=== PATIENT | male | born 1975 | race Caucasian/White ===

== ENCOUNTER 2024-09-21 09:24 | Outpatient (CLI) | payer OTHER, SELFPAY ==
--- OUTSIDE RECORDS SUMMARY | 2024-09-21 09:29 | XMS_ITS | Clinical Summary ---
Author Organization [facility] Address [address] [place] [address] Care Team Providers Care Feller Machine Operator Name Role Phone Ciara Layton Primary Care Provider Source Comments [facility],non-owned Affiliates and Associated Physician Practices is amultiple site organization consisting of ambulatory clinics and hospital sitesin [place], [place], [place] and [place]. This disclosure is being madepursuant to the Care Everywhere program and may not contain all information available regarding this patient. Last updated 18.[facility] Allergies No known active allergies Medications * Be aware that medications may not be up to date on this document. Alwaysverify current medications with the patient. busPIRone (Buspar) 15 MG tablet Take 1 (one) tablet by mouth 2 times daily 2 Active gabapentin (Neurontin) 300 MG capsule 1 (one) capsule at bedtime 2 Active lisinopril (Prinivil; Zestril) 10 MG tablet Take 1 (one) tablet by mouth once daily 2 Active allopurinol (Zyloprim) 100 MG tablet Take 1 (one) tablet by mouth once daily 2 Active hydroCHLOROthia zide (Hydrodiuril) 25 MG tablet Take 0.5 (one-half) tablet by mouth once daily Active baclofen (Lioresal) 10 MG tablet Take 2 (two) tablets by mouth 2 times daily 4 Active buPROPion SR 12hr (Wellbutrin-SR) 150 MG tablet Take 1 (one) tablet by mouth once daily 3 Active celecoxib (CeleBREX) 200 MG capsule Take 1 (one) capsule by mouth once daily 4 Active furosemide (Lasix) 20 MG tablet Take 1 (one) tablet by mouth once daily Active meclizine (Antivert) 25 MG tablet Take 1 (one) tablet by mouth 3 times daily as needed for Dizziness 4 Active acetaminophen (Tylenol) 500 MG tablet Take 2 (two) tablets by mouth every 6 hours as needed for Pain Active vitamin D, ergocalciferol, (Drisdol) 1.25 MG (52497 UT) capsuleIndicati ons:Vitamin D Deficiency Take 1 (one) capsule by mouth every 7 days Reasons: Vitamin D Deficiency 4 capsule 3 4 Active topiramate (Topamax) 25 MG tabletIndicatio ns:Morbid obesity with BMI of 50.0-59.9, adult (HCC) Take 1 (one) tablet by mouth at bedtime 30 tablet 4 Active Active Problems No known active problems Family History Medical History Relation Name Comments CVA Father Heart Failure Maternal Grandfather Cancer Maternal Grandmother Heart Failure Paternal Grandfather Cancer Paternal Grandmother Relation Name Status Comments Father Maternal Grandfather Maternal Grandmother Paternal Grandfather Paternal Grandmother Social History Tobacco Use Types Packs/Day Years Used Date Smoking Tobacco: Never Smokeless Tobacco: Never Alcohol Use Standard Drinks/Week Comments Not Currently 0 (1 standard drink = 0.6 oz pur e alcohol) Very rarely PHQ-2 Answer Date Recorded Patient Health Questionnaire-2 Score 1 01/05/2024 Sex and Gender Information Value Date Recorded Sex Assigned at Not on file Legal Sex Male 4:37 AM CDT Gender Identity Not on file Sexual Orientation Not on file Last Filed Vital Signs Vital Sign Reading Time Taken Comments Blood Pressure 101/69 01/05/2024 10:58 AM CDT Pulse 87 01/05/2024 10:58 AM CDT Temperature 36.8 C (98.2 F) 01/05/2024 10:58 AM CDT Respiratory Rate 20 01/05/2024 10:58 AM CDT Oxygen Saturation 95% 01/05/2024 10:58 AM CDT Inhaled Oxygen Concentration - - Weight 174 kg (383 lb 11.2 oz) 01/05/2024 10:58 AM CDT Height 180.3 cm (5' 11) 01/05/2024 10:58 AM CDT Body Mass Index 53.52 01/05/2024 10:58 AM CDT Plan of Treatment Health Maintenance Due Date Last Done Comments COLOGUARD (AGES 45-75) - COL ON CA SCREENING [address] COLONOGRAPHY - COLON CA SCREENING 1973 FIT - COLON CA SCREENING 1973 FLEX SIG - COLON CA SCREENING 1973 HIV SCREENING 1988 HEPATITIS C SCREENING 03/22/1991 DTAP/TDAP/TD VACCINES (1 - Tdap) 1992 HEPATITIS B VACCINE (1 of 3 - 19+ 3-dose series) 1992 PNEUMOCOCCAL VACCINE 50+ (1 of 1 - PCV) 2023 ZOSTER VACCINE (1 of 2) 2023 COVID-19 VACCINE ( - 2023-2 5 season) 2023 DEPRESSION SCREENING 04/25/2024 01/05/2024 INFLUENZA VACCINE (Season Ended) 2024 SCREENING FOR DIABETES 01/09/2027 , 01/10/2024, 01/10/2024 LIPID TESTING 01/09/2029 01/10/2024, 08/03/2023, 03/09/2022 COLONOSCOPY - COLON CA SCREENING 11/22/2032 11/22/2022 Colorectal Cancer Screening 11/22/2032 HIB VACCINE Aged Out No longer eligi ble based on patient's age to complete this topic HPV VACCINE Aged Out No longer eligi ble based on patient's age to complete this topic MENINGOCOCCAL (Group B) VACCINE SHARED DECISION-MAKING Aged Out No longer eligible based on patient's age to complete this topic MENINGOCOCCAL GROUPS A/C/Y/W VACCINE Aged Out No longer eligible b ased on patient's age to complete this topic Procedures Procedure Name Priority Date/Time Associated Diagnosis Comments COMPREHENSIVE METABOLIC PANEL Routine 01/10/2024 Morbid obesity with BMI of 50.0-59.9, adult LIPID PROFILE Routine 01/10/2024 Morbid obesity with BMI of 50.0-59.9, adult from Last 3 Months or Most Recently Relevant to Health Maintenance Results * COMPREHENSIVE METABOLIC PANEL (01/10/2024) Blood BLOOD SPECIMEN / Unknown 01/10/2024 Sharri Parsons CERTIFIED CONTROL SYSTEMS TECHNICIAN-MANAGER PRACTICE LAB - CHEMISTRY ORDERABLES F inal Result OTHER LAB * LIPID PROFILE (01/10/2024) Blood BLOOD SPECIMEN / Unknown 01/10/2024 Sharri Parsons CERTIFIED CONTROL SYSTEMS TECHNICIAN-MANAGER PRACTICE LAB - CHEMISTRY ORDERABLES F inal Result OTHER LAB from Last 3 Months or Most Recently Relevant to Health Maintenance Insurance [facility] Care Teams Feller Machine Operator Relationship Specialty Start Date End Date Ciara Layton PA [address] [facility] [address] [place] [address] PCP - General Physician Bending Shed Worker 10/11/23
== END 2024-09-21 09:25 | disposition home or self-care (01) ==
LOC: ANHAUDIO 09:24
PROVIDERS: Visit Provider Otolaryngology Otolaryngology/Facial Plastic Surgery
DX: H90.3 Sensorineural hearing loss, bilateral (principal); H93.13 Tinnitus, bilateral
CPT/HCPCS: 92557; 92567

== ENCOUNTER 2024-10-04 12:39 | Outpatient (CLI) | payer OTHER, SELFPAY ==
--- NOTE | ~2024-10-04 | CT_ITS ---
EXAMINATION: CT sinus wo con DATE: 10/04/2024 13:19 INDICATION: Chronic sinusitis TECHNIQUE: Computed tomography (CT) of the paranasal sinuses was performed without intravenous contra st. The dose-length product was 327.26 mGy-cm. Automated exposure control and iterative reconstructio n technique were employed. COMPARISON: None FINDINGS: There is mucosal thickening of the left maxillary, ethmoid and frontal sinuses. Mastoids ar e pneumatized. Left ostiomeatal unit is occluded by soft tissue. Ostiomeatal unit is patent. Leftward nasal septal deviation. IMPRESSION: 1. Moderate sinus disease most significant in the left maxillary sinus. Reviewed, dictated and finalized at location B.
--- OUTSIDE RECORDS SUMMARY | 2024-10-04 13:07 | XMS_ITS | Clinical Summary ---
Author Organization [facility] Address [address] [facility] [place] [address] Care Team Providers Care Analytic Programmer Name Role Phone Ciara Layton Primary Care Provider Source Comments [facility],non-owned Affiliates and Associated Physician Practices is amultiple site organization consisting of ambulatory clinics and hospital sitesin [place], [place], [place] and [place]. This disclosure is being madepursuant to the Care Everywhere program and may not contain all information available regarding this patient. Last updated 18.[facility] Allergies No known active allergies Medications * [...] Active vitamin D, ergocalciferol, (Drisdol) 1.25 MG (92692 UT) capsuleIndicati ons:Vitamin D Deficiency Take 1 [...] Last Done Comments COLOGUARD (AGES 45-75) - COLON CA SCREENING 1973 CT COLONOGRAPHY - COLON CA SCREENING [...] of 2) 2023 COVID-19 VACCINE ( - season) 2023 DEPRESSION SCREENING 04/25/2024 01/05/2024 INFLUENZA VACCINE (Season Ended) 2024 SCREENING FOR DIABETES 01/09/2027 , 01/10/2024, 01/10/2024, Additional history exists LIPID TESTING 01/09/2029 01/10/2024, 04, 03/09/2022 COLON MONITORING 11/22/2032 11/22/2022 COLONOSCOPY - COLON CA SCREENING 11/22/2032 11/22/2022 [...] A/C/Y/W VACCINE Aged Out No longer eligible based on [...] BLOOD SPECIMEN / Unknown 01/10/2024 Sharri Parsons SEWING MACHINE OPERATOR SEMIAUTOMATIC-PRESS SUPERVISOR LAB - CHEMISTRY ORDERABLES F inal Result OTHER LAB * LIPID PROFILE (01/10/2024) Blood BLOOD SPECIMEN / Unknown 01/10/2024 Sharri Parsons SEWING MACHINE OPERATOR SEMIAUTOMATIC-PRESS SUPERVISOR LAB - CHEMISTRY ORDERABLES F inal Result OTHER LAB from Last 3 Months or Most Recently Relevant to Health Maintenance Insurance [facility] Care Teams Analytic Programmer Relationship Specialty Start Date End Date Ciara Layton PA [address] [address] PCP - General Physician Personal Property Appraiser 10/11/23
== END 2024-10-04 12:40 | disposition home or self-care (01) ==
PROVIDERS: Visit Provider Otolaryngology Otolaryngology/Facial Plastic Surgery
DX: J32.0 Chronic maxillary sinusitis (principal)
CPT/HCPCS: 70486

== ENCOUNTER 2024-11-08 16:20 | Outpatient (CLI) | payer OTHER, SELFPAY ==
--- NOTE | ~2024-11-08 | MR_ITS ---
MRI of the brain Clinical History: Bilateral sensorineural hearing loss Technique: Axial and sagittal T1-weighted images were acquired. These were followed by axial T2-weigh modesto, diffusion weighted, gradient, and FLAIR images. Thin cut coronal and axial T1-weighted and T2-we ighted images were performed through the internal auditory canals. Following intravenous administrati on of 20 cc MultiHance gadolinium, T1-weighted fat-sat imaging was performed through the brain in the axial and coronal planes. Thin cut T1-weighted postcontrast imaging through the internal auditory ca nals was also performed in the axial and coronal planes. Findings: No significant signal abnormality seen in the brain parenchyma. No acute infarct, intracran ial hemorrhage, or mass lesion. Ventricles and subarachnoid spaces are unremarkable. Orbits are unremarkable. There is extensive opac ification of the left maxillary sinus. Remaining paranasal sinuses and mastoid air cells are clear. M ajor intracranial flow voids appear intact. Sagittal midline structures are intact. No evidence of mass lesion at the CP angle regions or internal auditory canals. No abnormal postcontrast enhancement identified. IMPRESSION: No significant abnormality seen. Reviewed, dictated and finalized at location M.
--- OUTSIDE RECORDS SUMMARY | 2024-11-08 16:26 | XMS_ITS | Encounter Summary ---
Author Organization [facility] Address [facility] [place] [address] Care Team Providers Care Enterprise Cloud Architect Name Role Phone Fredy Gill MD Primary Care Provider Unavailable Ciara Layton Primary Care Provider [phone] Jb Kim MD Unavailable [phone] Phoenix Dye MD Unavailable [phone] Jarad Garcia MD Unavailable [phone] Emelyn Warren MD Unavailable [phone] Encounter Details Date Type Department Care Team (Late st Contact Info) Description 07/15/2006 Abstract [facility] Conversion , Generic Conversion, Social History Tobacco Use Types Packs/Day Years Used Date Smoking Tobacco: Never Assessed Sex and Gender Information Value Date Recorded Sex Assigned at Male 12/10/2020 9:56 AM CDT Legal Sex Male 5:50 PM CDT Gender Identity Male 12/10/2020 9:56 AM CDT Sexual Orientation Straight 12/10/2020 9: 56 AM CDT documented as of this encounter Plan of Treatment Upcoming Encounters Date Type Department Care Team (Late st Contact Info) Description 12/10/2024 12:00 PM CDT Appointment [facility] [address] [place] [address] Nicola Parsons MD Three [facility]. [address] [place] [address] 02/22/2025 10:00 AM CDT Office Visit [facility] THREE [facility], [address] [place] [address] Judith Haile, MAINSPRING TORQUE TESTER-C Three [facility]. [address] [place] [address] 04/04/2025 9:40 AM CHILD AND FAMILY THERAPIST Office Visit [facility] Medical Group Multispecialty Care - [facility] [address] [facility] [place] [address] Phoenix Dye MD [address] [place] [address] [address] [place] [address] documented as of this encounter Visit Diagnoses Not on filedocumented in this encounter Additional Health Concerns Infection Onset Date Last Indicated Resolved Time COVID-19 Rule Out 10/13/2020 10/13/2020 10/13/2020 10:37 AM CDT COVID-19 Rule Out 10/13/2020 10/13/2020 10/13/2020 8:32 PM CDT COVID-19 Rule Out 04/24/2021 04/24/2021 04/24/2021 4:18 PM CHILD AND FAMILY THERAPIST COVID-19 Confirmed 04/24/2021 04/24/2021 12:32 AM CHILD AND FAMILY THERAPIST COVID-19 Rule Out 05/29/2021 05/29/2021 05/29/2021 8:50 AM CHILD AND FAMILY THERAPIST COVID-19 Rule Out 01/17/2023 12/28/2022 01/17/2023 12:11 PM CDT COVID-19 Rule Out 03/27/2023 03/27/2023 03/27/2023 6:02 PM CHILD AND FAMILY THERAPIST Respiratory Rule Out 06/23/2024 06/23/2024 025 9:53 PM CHILD AND FAMILY THERAPIST COVID-19 Rule Out 06/23/2024 06/23/2024 06/23/2024 10:15 PM CHILD AND FAMILY THERAPIST documented as of this encounter Care Teams Enterprise Cloud Architect Relationship Specialty Start Date End Date GillFredy MD PCP - General 10/05/16 04/14/18 Ciara Layton, PA [address] [place] [address] PCP - General PHYSICIAN TRAILHEAD MAINTENANCE WORKER 04/15/18 Jb Kim MD Three [facility]. [address] [address] Consulting Physician CARDIOVASCULAR DISEASE 10/21/22 Phoenix Dye MD [address] [place] [address] Consulting Physician PULMONARY DISEASE 10/21/22 Jarad Garcia MD [address] [place] [address] Physician NEUROMUSCULOSKELETAL MEDICINE 10/21/22 08/25/23 Emelyn Warren MD [address] [place] [address] Consulting Physician NEUROLOGY 08/26/23 documented as of this encounter
--- OUTSIDE RECORDS SUMMARY | 2024-11-08 16:26 | XMS_ITS | Encounter Summary ---
Author Organization [facility] Address [facility] [place] [address] Care Team Providers Care Fisheries Enforcement Officer Name Role Phone Fredy Gill MD Primary Care Provider Unavailable Ciara Layton Primary Care Provider [phone] Jb Kim MD Unavailable [phone] Phoenix Dye MD Unavailable [phone] Jarad Garcia MD Unavailable [phone] Emelyn Warren MD Unavailable [phone] Encounter Details Date Type Department Care Team (Late st Contact Info) Description 12/05/2006 Abstract [facility] Conversion , Generic Conversion, Social History [...] Info) Description 12/10/2024 12:00 PM CDT Appointment [facility] [address] [place] [address] Nicola Parsons MD Three [facility]. [address] [place] [address] 02/22/2025 10:00 AM CDT Office Visit [facility] THREE [facility], [address] [place] [address] Judith Haile, MERRY GO ROUND ATTENDANT-C Three [facility]. [address] [place] [address] 04/04/2025 9:40 AM FERRYBOAT DECKHAND Office Visit [facility] Medical Group Multispecialty Care - [facility] [address] [facility] [place] [address] Phoenix Dye MD [address] [place] [address] [address] [place] [address] documented as of this encounter Visit Diagnoses Not on filedocumented in this encounter Additional Health Concerns Infection Onset Date Last Indicated Resolved Time COVID-19 Rule Out 10/13/2020 10/13/2020 10/13/2020 10:37 AM CDT COVID-19 Rule Out 10/13/2020 10/13/2020 10/13/2020 8:32 PM CDT COVID-19 Rule Out 04/24/2021 04/24/2021 04/24/2021 4:18 PM FERRYBOAT DECKHAND COVID-19 Confirmed 04/24/2021 04/24/2021 12:32 AM FERRYBOAT DECKHAND COVID-19 Rule Out 05/29/2021 05/29/2021 05/29/2021 8:50 AM FERRYBOAT DECKHAND COVID-19 Rule Out 01/17/2023 12/28/2022 01/17/2023 12:11 PM CDT COVID-19 Rule Out 03/27/2023 03/27/2023 03/27/2023 6:02 PM FERRYBOAT DECKHAND Respiratory Rule Out 06/23/2024 06/23/2024 025 9:53 PM FERRYBOAT DECKHAND COVID-19 Rule Out 06/23/2024 06/23/2024 06/23/2024 10:15 PM FERRYBOAT DECKHAND documented as of this encounter Care Teams Fisheries Enforcement Officer Relationship Specialty Start Date End Date GillFredy MD PCP - General 10/05/16 04/14/18 Ciara Layton, PA [address] [place] [address] PCP - General PHYSICIAN CARPENTER HELPER MAINTENANCE 04/15/18 Jb Kim MD Three [facility]. [address] [address] Consulting Physician CARDIOVASCULAR DISEASE 10/21/22 Phoenix Dye MD [address] [place] [address] Consulting Physician PULMONARY DISEASE 10/21/22 Jarad Garcia MD [address] [place] [address] Physician NEUROMUSCULOSKELETAL MEDICINE 10/21/22 08/25/23 Emelyn Warren MD [address] [place] [address] Consulting Physician NEUROLOGY 08/26/23 documented as of this encounter
--- OUTSIDE RECORDS SUMMARY | 2024-11-08 16:26 | XMS_ITS | Encounter Summary ---
Author Organization [facility] Address [facility] [place] [address] Care Team Providers Care Absorption And Adsorption Engineer Name Role Phone Fredy Gill MD Primary Care Provider Unavailable Ciara Layton Primary Care Provider [phone] Jb Kim MD Unavailable [phone] Phoenix Dye MD Unavailable [phone] Jarad Garcia MD Unavailable [phone] Emelyn Warren MD Unavailable [phone] Encounter Details Date Type Department Care Team (Late st Contact Info) Description 08/18/2006 Abstract [facility] Conversion , Generic Conversion, Social History [...] Info) Description 12/10/2024 12:00 PM CDT Appointment [facility] [address] [place] [address] Nicola Parsons MD Three [facility]. [address] [place] [address] 02/22/2025 10:00 AM CDT Office Visit [facility] [facility] THREE [facility], [address] [place] [address] Judith Haile, CROSSCUTTER-C Three [facility]. [address] [place] [address] 04/04/2025 9:40 AM SENIOR TERADATA DEVELOPER Office Visit [facility] Medical Group Multispecialty Care - [facility] [address] [facility] [place] [address] Phoenix Dye MD [address] [place] [address] [address] [place] [address] documented as of this encounter Visit Diagnoses Not on filedocumented in this encounter Additional Health Concerns Infection Onset Date Last Indicated Resolved Time COVID-19 Rule Out 10/13/2020 10/13/2020 10/13/2020 10:37 AM CDT COVID-19 Rule Out 10/13/2020 10/13/2020 10/13/2020 8:32 PM CDT COVID-19 Rule Out 04/24/2021 04/24/2021 04/24/2021 4:18 PM SENIOR TERADATA DEVELOPER COVID-19 Confirmed 04/24/2021 04/24/2021 12:32 AM SENIOR TERADATA DEVELOPER COVID-19 Rule Out 05/29/2021 05/29/2021 05/29/2021 8:50 AM SENIOR TERADATA DEVELOPER COVID-19 Rule Out 01/17/2023 12/28/2022 01/17/2023 12:11 PM CDT COVID-19 Rule Out 03/27/2023 03/27/2023 03/27/2023 6:02 PM SENIOR TERADATA DEVELOPER Respiratory Rule Out 06/23/2024 06/23/2024 025 9:53 PM SENIOR TERADATA DEVELOPER COVID-19 Rule Out 06/23/2024 06/23/2024 06/23/2024 10:15 PM SENIOR TERADATA DEVELOPER documented as of this encounter Care Teams Absorption And Adsorption Engineer Relationship Specialty Start Date End Date GillFredy MD PCP - General 10/05/16 04/14/18 Ciara Layton, PA [address] [place] [address] PCP - General PHYSICIAN RETAIL OFFICE MANAGER 04/15/18 Jb Kim MD Three [facility]. [address] [address] Consulting Physician CARDIOVASCULAR DISEASE 10/21/22 Phoenix Dye MD [address] [place] [address] Consulting Physician PULMONARY DISEASE 10/21/22 Jarad Garcia MD [address] [place] [address] Physician NEUROMUSCULOSKELETAL MEDICINE 10/21/22 08/25/23 Emelyn Warren MD [address] [place] [address] Consulting Physician NEUROLOGY 08/26/23 documented as of this encounter
--- OUTSIDE RECORDS SUMMARY | 2024-11-08 16:26 | XMS_ITS | Encounter Summary ---
Author Organization [facility] Address [facility] [place] [address] Care Team Providers Care Employee Development Specialist Name Role Phone Ciara Layton Primary Care Provider [phone] Jb Kim MD Unavailable [phone] Phoenix Dye MD Unavailable [phone] Jarad Garcia MD Unavailable [phone] Emelyn Warren MD Unavailable [phone] Encounter Details Date Type Department Care Team (Late st Contact Info) Description 03/24/2023 MyChart Message Enc [facility] [address] [place] [address] Roberta Monge, PT [address] [place], [place] [id number] PT Social History Tobacco Use Types Packs/Day Years Used Date Smoking Tobacco: Never Passive Smoke Exposure: Never Smokeless Tobacco: Never Comments:Never Smoked Alcohol Use Standard Drinks/Week Comments Yes 0 (1 standard drink = 0.6 oz pur e alcohol) rarely, less than twice a year PHQ-2 Answer Date Recorded Patient Health Questionnaire-2 Score 0 03/23/2023 Sex and Gender Information Value Date Recorded Sex Assigned at Male 12/10/2020 9:56 AM CDT Legal Sex Male 5:50 PM CDT Gender Identity Male 12/10/2020 9:56 AM CDT Sexual Orientation Straight 12/10/2020 9: 56 AM CDT documented as of this encounter Functional Status * RETIRED Are you deaf or do you have serious difficulty hearing Answer Date of Assessment Author Status No 03/07/2022 7:00 AM FLIGHT ATTENDANT INFLIGHT SERVICES Activ e * RETIRED Are you blind or do you have serious difficulty seeing, even when wearing glasses? Answer Date of Assessment Author Status No 03/07/2022 8:00 AM FLIGHT ATTENDANT INFLIGHT SERVICES Activ e * Do you have serious difficulty walking or climbing stairs? Answer Date of Assessment Author Status Yes 03/07/2022 8:00 AM Amanda Esposito RN Active * Do you have difficulty dressing or bathing? Answer Date of Assessment Author Status No 03/07/2022 8:00 AM Amanda Esposito RN Active * Because of a physical, mental, or emotional condition, do you have difficulty doing errands alone such as visiting a doctor's office or shopping? Answer Date of Assessment Author Status No 03/07/2022 8:00 AM Amanda Esposito RN Active * Calculated C-SSRS Risk Score (Lifetime/Recent) Answer Date of Assessment Author Status No Risk Indicated 03/27/2023 5:04 PM Mei Nielsen RN Active * [place] Suicide Severity Rating Scale (Screener/Recent Self-Report) Question Answer Date of Assessment Author Status 1. Wish to be (Past 1 Month) No 03/27/2023 5:04 PM Mei Nielsen RN Active 2. Non-Specific Active Suicidal Thoughts (Past 1 Month) No 03/27/2023 5:04 PM Mei Nielsen RN Active 6. Suicidal Behavior (Lifetime) No 03/27/2023 5:04 PM Mei Nielsen RN Active documented as of this encounter Mental Status * Because of a physical, mental, or emotional condition, do you have serious difficulty concentrating, remembering, or making decisions? Answer Entry Date Author Status No 03/07/2022 8:00 AM Amanda Esposito RN Active documented in this encounter Plan of Treatment Upcoming Encounters Date Type Department Care Team (Late st Contact Info) Description 12/10/2024 12:00 PM CDT Appointment [facility] [address] [place] [address] Nicola Parsons MD Three [facility]. [address] [place] [address] 02/22/2025 10:00 AM CDT Office [facility] [address] [place] [address] Judith Haile, SILK SCREEN PRINTING RACKER-C Three [facility]. [address] [place] [address] 04/04/2025 9:40 AM FLIGHT ATTENDANT INFLIGHT SERVICES Office Visit [facility] Medical [facility] Multispecialty Care - [facility] [address] [facility] [place] [address] Phoenix Dye MD [address] [facility] [address] [place] [address] documented as of this encounter Visit Diagnoses Not on filedocumented in this encounter Additional Health Concerns Infection Onset Date Last Indicated Resolved Time COVID-19 Rule Out 03/27/2023 03/27/2023 03/27/2023 6:02 PM FLIGHT ATTENDANT INFLIGHT SERVICES Respiratory Rule Out 06/23/2024 06/23/2024 025 9:53 PM FLIGHT ATTENDANT INFLIGHT SERVICES COVID-19 Rule Out 06/23/2024 06/23/2024 06/23/2024 10:15 PM FLIGHT ATTENDANT INFLIGHT SERVICES Assessment Noted Time PHQ-9 Depression Total Score: 6 09/30/19 23 10:18 AM CDT documented as of this encounter Care Teams Employee Development Specialist Relationship Specialty Start Date End Date Ciara Layton PA [address] [place] [address] PCP - General PHYSICIAN PERFORMANCE REPORTER 04/15/18 Jb Kim MD Three [address] [address] Consulting Physician CARDIOVASCULAR DISEASE 10/21/22 Phoenix Dye MD [address] [place] [address] Consulting Physician PULMONARY DISEASE 10/21/22 Jarad Garcia MD [address] [place], [place] [address] Physician NEUROMUSCULOSKELETAL MEDICINE 10/21/22 08/25/23 Emelyn Warren MD [address] [place] [address] Consulting Physician NEUROLOGY 08/26/23 documented as of this encounter
--- OUTSIDE RECORDS SUMMARY | 2024-11-08 16:27 | XMS_ITS | Encounter Summary ---
Author Organization [facility] Address [facility] [place] [address] Care Team Providers Care Paint Stripper Name Role Phone Ciara Layton Primary Care Provider [phone] Jb Kim MD Unavailable [phone] Phoenix Dye MD Unavailable [phone] Jarad Garcia MD Unavailable [phone] Emelyn Warren MD Unavailable [phone] Encounter Details Date Type Department Care Team (Late st Contact Info) Description 04/26/2023 MyChart Message Enc [facility] Medical Group Multispecialty Care - [facility] [address] [place] [address] Judith Garber, ELENA [address] [place] [address] MRA scan Social History Tobacco Use Types Packs/Day Years Used Date Smoking Tobacco: Never Passive Smoke Exposure: Never Smokeless Tobacco: Never Comments:Never Smoked Alcohol Use Standard Drinks/Week Comments Yes 0 (1 standard drink = 0.6 oz pur e alcohol) rarely, less than twice a year PHQ-2 Answer Date Recorded Patient Health Questionnaire-2 Score 0 04/27/2023 Sex and Gender Information Value Date Recorded [...] Assessment Author Status No 03/07/2022 7:00 AM ELECTRICAL FITTER Activ e * RETIRED Are you blind or do you have serious difficulty seeing, even when wearing glasses? Answer Date of Assessment Author Status No 03/07/2022 8:00 AM ELECTRICAL FITTER Activ e * Do you have serious [...] 8:00 AM Amanda Esposito RN Active * Over the past 2 weeks, how often have you been bothered by any of the following problems? Question Answer Date of Assessment Author Status Little interest or pleasure in doing things Not at all 04/27/2023 10:42 AM Ozzie Santos CMA Active Feeling down, depressed, or hopeless Not at all 04/27/2023 10:42 AM Desiree Santos CMA Active Patient Health Questionnaire-2 Score 0 04/27/2023 10:42 AM Burt Santos CMA Active * Calculated C-SSRS Risk Score (Lifetime/Recent) Answer Date of Assessment Author Status No Risk Indicated 04/29/2023 9:30 AM Scott Katz RN Active * Atkinson Suicide Severity Rating Scale (Screener/Recent Self-Report) Question Answer Date of Assessment Author Status 1. Wish to be (Past 1 Month) No 04/29/2023 9:30 AM Tania Katz RN Act carlita 2. Non-Specific Active Suicidal Thoughts (Past 1 Month) No 04/29/2023 9:30 AM ELECTRICAL FITTER Tania Lr RN Act carlita 6. Suicidal Behavior (Lifetime) No 04/29/2023 9:30 AM ELECTRICAL FITTER Tania Lr RN Act carlita documented as of this encounter Mental Status * Because of a physical, mental, or emotional condition, do you have serious difficulty concentrating, remembering, or making decisions? Answer Entry Date Author Status No 03/07/2022 8:00 AM ELECTRICAL FITTER Amanda De La Fuente RN Active documented in this encounter Plan of Treatment Upcoming Encounters Date Type Department Care Team (Late st Contact Info) Description 12/10/2024 12:00 PM CDT Appointment [facility] [address] [place], [place] [id number] Nicola Parsons MD Three [facility]. [address] [place], [place] [address] 02/22/2025 10:00 AM CDT Office Visit [facility] [address], [address] [place], [place] [id number] Judith Haile, SENIOR TECHNICAL PROGRAM MANAGER-C Three [facility]. [address] [place] [address] 04/04/2025 9:40 AM ELECTRICAL FITTER Office Visit [facility] Medical Group Multispecialty Care - [facility] [address] [place] [address] Phoenix Dye MD [address] [place] [address] [address] [place] [address] documented as of this encounter Visit Diagnoses Not on filedocumented in this encounter Additional Health Concerns Infection Onset Date Last Indicated Resolved Time Respiratory Rule Out 06/23/2024 06/23/2024 025 9:53 PM ELECTRICAL FITTER COVID-19 Rule Out 06/23/2024 06/23/2024 06/23/2024 10:15 PM ELECTRICAL FITTER Assessment Noted Time PHQ-9 Depression Total Score: 6 09/30/19 10:18 AM CDT documented as of this encounter Care Teams Paint Stripper Relationship Specialty Start Date End Date Ciara Layton PA [address] [place] [address] PCP - General PHYSICIAN CHEF INSTRUCTOR 04/15/18 Jb Kim MD Three [address] [address] Consulting Physician CARDIOVASCULAR DISEASE 10/21/22 Phoenix Dye MD [address] [address] Consulting Physician PULMONARY DISEASE 10/21/22 Jarad Garcia MD 3 [place] [address] Physician NEUROMUSCULOSKELETAL MEDICINE 10/21/22 08/25/23 Emelyn Warren MD [address] [place] [address] Consulting Physician NEUROLOGY 08/26/23 documented as of this encounter
--- OUTSIDE RECORDS SUMMARY | 2024-11-08 16:27 | XMS_ITS | Encounter Summary ---
Author Organization [facility] Address [facility] [place] [address] Care Team Providers Care Group Leader Semiconductor Processing Name Role Phone Ciara Layton Primary Care Provider [phone] Jb Kim MD Unavailable [phone] Phoenix Dye MD Unavailable [phone] Jarad Garcia MD Unavailable [phone] Emelyn Warren MD Unavailable [phone] Encounter Details Date Type Department Care Team (Late st Contact Info) Description 05/22/2021 Prep for Procedure [facility] Day Services [address] [place], [place] [phone] [place] [address] [place] [address] Social History Tobacco Use Types Packs/Day Years Used Date Smoking Tobacco: Never Smokeless Tobacco: Never Alcohol Use Standard Drinks/Week Comments Yes 0 (1 standard drink = 0.6 oz pur e alcohol) rarely, less than twice a year PHQ-2 Answer Date Recorded PHQ-2 Score - If the patient scores above 3, please move on to questions 3-9 0 01/26/2021 Sex and Gender Information Value Date Recorded Sex Assigned at Male 12/10/2020 9:56 AM CDT Legal Sex Male 5:50 PM CDT Gender Identity Male 12/10/2020 9:56 AM CDT Sexual Orientation Straight 12/10/2020 9: 56 AM CDT COVID-19 Exposure Response Date Recorded In the last month, have you been in contact with someone who was confirmed or suspected to have Coronavirus / COVID-19? No / Unsure 05/25/2021 8:14 AM DIRECTOR OF HEALTH EDUCATION documented as of this encounter Plan of Treatment Upcoming Encounters Date Type Department Care Team (Late st Contact Info) Description 12/10/2024 12:00 PM CDT Appointment [facility] Ultrasound [address] [place], [place] [phone] Nicola Parsons MD [facility]. [address] [place] [address] 02/22/2025 10:00 AM CDT Office Visit [facility] THREE [facility], [address] [place] [address] Judith Haile, RESISTANCE WELDING MACHINE OPERATOR-C [facility]. [address] [place] [address] 04/04/2025 9:40 AM DIRECTOR OF HEALTH EDUCATION Office Visit [facility] Medical Group Multispecialty Care - [facility] [address] [place] [address] Phoenix Dye MD [address] [place] [address] [address] [place], [place] [address] documented as of this encounter Results * Pre- Surgical Coronavirus (COVID-19) Antigen Rapid (05/29/2021 8:20 AM DIRECTOR OF HEALTH EDUCATION) CORONAVIRUS ANTIGEN IA NEGATIVE NEGATIVE 05/29/2021 8:50 AM DIRECTOR OF HEALTH EDUCATION [facility] Comment: NEGATIVE RESULTS DO NOT RULE OUT SARS-COV-2 INFECTION AND SHOULD NOT BE USED THE SOLE BASIS FOR TREATMENT OR PATIENT MANAGEMENT DECISIONS, INCLUDING INFECTION CONTROL DECISIONS. NEGATIVE RESULTS SHOULD BE CONSIDERED IN THE CONTEXT OF A PATIENT'S RECENT EXPOSURES, HISTORY AND THE PRESENCE OF CLINICAL SIGNS AND SYMPTOMS CONSISTENT WITH COVID 19. THIS TEST HAS BEEN AUTHORIZED BY THE FDA UNDER AN EMERGENCY USE AUTHORIZATION (EUA) FOR USE BY AUTHORIZED LABORATORIES. SPECIMEN TYPE NASAL 05/29/2021 8:23 AM DIRECTOR OF HEALTH EDUCATION [facility] FIRST TEST UNKNOWN 05/29/2021 8:23 AM DIRECTOR OF HEALTH EDUCATION [facility] EMPLOYED IN HEALTHCARE NO 05/29/2021 8:23 AM DIRECTOR OF HEALTH EDUCATION [facility] SYMPTOMATIC DEFINED BY CDC NO 05/29/2021 8:23 AM DIRECTOR OF HEALTH EDUCATION [facility] HOSPITALIZATION STATUS NO 05/29/2021 8:23 AM DIRECTOR OF HEALTH EDUCATION [facility] PATIENT IN ICU NO 05/29/2021 8:23 AM DIRECTOR OF HEALTH EDUCATION [facility] RESIDENT OF [facility] NO 05/29/2021 8:23 AM DIRECTOR OF HEALTH EDUCATION [facility] Specimen from nose (specimen) NASAL STRUCTURE / Unknown 05/29/2021 8:20 AM DIRECTOR OF HEALTH EDUCATION us Oinel Villalba DO MICROBIOLOGY - GENERAL ORDERABL ES Final Result Performing Organization Address City/State/[facility] Co de Phone Number [facility] [address] [place] [address], [place] [phone] documented in this encounter Visit Diagnoses Diagnosis Preop testing- Primary Preoperative examination, unspecified documented in this encounter Additional Health Concerns Infection Onset Date Last Indicated Resolved Time COVID-19 Rule Out 05/29/2021 05/29/2021 05/29/2021 8:50 AM DIRECTOR OF HEALTH EDUCATION COVID-19 Rule Out 01/17/2023 12/28/2022 01/17/2023 12:11 PM CDT COVID-19 Rule Out 03/27/2023 03/27/2023 03/27/2023 6:02 PM DIRECTOR OF HEALTH EDUCATION Respiratory Rule Out 06/23/2024 06/23/2024 025 9:53 PM DIRECTOR OF HEALTH EDUCATION COVID-19 Rule Out 06/23/2024 06/23/2024 06/23/2024 10:15 PM DIRECTOR OF HEALTH EDUCATION Assessment Noted Time PHQ-9 Depression Total Score: 0 01/27/20 2:17 PM CDT documented as of this encounter Care Teams Group Leader Semiconductor Processing Relationship Specialty Start Date End Date Ciara Layton PA [address] [place] [address] PCP - General PHYSICIAN ABALONE SHELLER 04/15/18 Jb Kim MD Three [facility]. [address] [address] Consulting Physician CARDIOVASCULAR DISEASE 10/21/22 Phoenix Dye MD [address] [address] Consulting Physician PULMONARY DISEASE 10/21/22 Jarad Garcia MD 3 [place] [address] Physician NEUROMUSCULOSKELETAL MEDICINE 10/21/22 08/25/23 Emelyn Warren MD [address] [place] [address] Consulting Physician NEUROLOGY 08/26/23 documented as of this encounter
--- OUTSIDE RECORDS SUMMARY | 2024-11-08 16:27 | XMS_ITS | Encounter Summary ---
Author Organization [facility] Address Replaced by [facility] [place] [address] Care Team Providers Care Senior Project Manager Engineering Name Role Phone Ciara Layton Primary Care Provider [phone] Jb Kim MD Unavailable [phone] Phoenix Dye MD Unavailable [phone] Jarad Garcia MD Unavailable [phone] Emelyn Warren MD Unavailable [phone] Encounter Details Date Type Department Care Team (Late st Contact Info) Description 08/12/2022 Addictive Message Enc [facility], [address] [address] [place], [facility] Provider Stress test Reviewed Social History Tobacco Use Types Packs/Day Years Used Date Smoking Tobacco: Never Smokeless Tobacco: Never Comments:Never Smoked Alcohol Use Standard Drinks/Week Comments Yes 0 (1 standard drink = 0.6 oz pur e alcohol) rarely, less than twice a year PHQ-2 Answer Date Recorded Patient Health Questionnaire-2 Score 0 07/14/2022 Sex and Gender Information Value Date Recorded Sex Assigned at Male 12/10/2020 9:56 AM CDT Legal Sex Male 5:50 PM CDT Gender Identity Male 12/10/2020 9:56 AM CDT Sexual Orientation Straight 12/10/2020 9: 56 AM CDT COVID-19 Exposure Response Date Recorded In the last 10 days, have yo u been in contact with someone who was confirmed or suspected to have Coronavirus/COVID-19? No / Unsure 08/12/2022 10:16 AM CDT documented as of this encounter Functional Status * RETIRED Are you deaf or do you have serious difficulty hearing Answer Date of Assessment Author Status No 03/07/2022 7:00 AM CLOTH DRIER Activ e * RETIRED Are you blind or do you have serious difficulty seeing, even when wearing glasses? Answer Date of Assessment Author Status No 03/07/2022 8:00 AM CLOTH DRIER Activ e * Do you have serious [...] 8:00 AM Amanda Esposito RN Active documented as of this encounter [...] Info) Description 12/10/2024 12:00 PM CDT Appointment [facility] [address] [facility] [facility] [place] [place] [address] Nicola Parsons MD [facility]. [facility] [address] [place], [place] [address] 02/22/2025 10:00 AM CDT [facility] [address] [place], [place] [address] Judith Haile, SUPERVISOR CONCRETE PIPE PLANT-C [facility]. [address] [place], [place] [address] 04/04/2025 9:40 AM CLOTH DRIER Office Visit [facility] Medical Group Multispecialty Care - [facility] [address] [place] [address] Phoenix Dye MD [address] [place] [address] [address] [place] [address] documented as of this encounter Visit Diagnoses Not on filedocumented in this encounter Additional Health Concerns Infection Onset Date Last Indicated Resolved Time COVID-19 Rule Out 01/17/2023 12/28/2022 01/17/2023 12:11 PM CDT COVID-19 Rule Out 03/27/2023 03/27/2023 03/27/2023 6:02 PM CLOTH DRIER Respiratory Rule Out 06/23/2024 06/23/2024 025 9:53 PM CLOTH DRIER COVID-19 Rule Out 06/23/2024 06/23/2024 06/23/2024 10:15 PM CLOTH DRIER Assessment Noted Time PHQ-9 Depression Total Score: 0 05/03/19 23 2:19 PM CLOTH DRIER documented as of this encounter Care Teams Senior Project Manager Engineering Relationship Specialty Start Date End Date Ciara Layton PA [address] [place] [address] PCP - General PHYSICIAN JEWELRY DEPARTMENT SUPERVISOR 04/15/18 Jb Kim MD [facility]. [address] [place] [address] Consulting Physician CARDIOVASCULAR DISEASE 10/21/22 Phoenix Dye MD [address] [address] Consulting Physician PULMONARY DISEASE 10/21/22 Jarad Garcia MD 3 [place], [place] [address] Physician NEUROMUSCULOSKELETAL MEDICINE 10/21/22 08/25/23 Emelyn Warren MD [address] [place] [address] Consulting Physician NEUROLOGY 08/26/23 documented as of this encounter
--- OUTSIDE RECORDS SUMMARY | 2024-11-08 16:27 | XMS_ITS | Encounter Summary ---
Author Organization [facility] Address [facility] [place] [address] Care Team Providers Care Reproduction Technician Name Role Phone GillFredy MD Primary Care Provider Unavailable Ciara Layton Primary Care Provider [phone] Jb Kim MD Unavailable [phone] Phoenix Dye MD Unavailable [phone] Jarad Garcia MD Unavailable [phone] Emelyn Warren MD Unavailable [phone] Encounter Details Date Type Department Care Team (Late st Contact Info) Description 07/03/2014 Abstract [facility] Conversion Ciara Layton, KARINA [address] [place] [address] Social History Tobacco Use Types Packs/Day Years Used Date Smoking Tobacco: Never Assessed Sex and Gender Information Value Date Recorded Sex Assigned at Male 12/10/2020 9:56 AM CDT Legal Sex Male 5:50 PM CDT Gender Identity Male 12/10/2020 9:56 AM CDT Sexual Orientation Straight 12/10/2020 9: 56 AM CDT documented as of this encounter Miscellaneous Notes * Letter - KARINA Elliott - 07/03/2014 12:00 AM CDT [address] [place] [address] Jul 03, 2014 Please excuse, Willis Izquierdo, from work/school on 07-01-2014 to 07-05-2014, due to illness and/or injury. Willis is released to return to work/school with no restrictions on 07-08-2014. Thank you, Ciara COLLINS SFITTER documented in this encounter Plan of Treatment Upcoming Encounters Date Type Department Care Team (Late st Contact Info) Description 12/10/2024 12:00 PM CDT Appointment [facility] Ultrasound [address] [place], [place] [address] Nicola Parsons MD Three [facility]. [address] [place], [place] [address] 02/22/2025 10:00 AM CDT Office Visit [facility] [address] [facility] [address] [place], [place] [phone] Judith Haile, ARCHITECTURE INTERN-C Three [facility]. [address] [place], [place] [address] 04/04/2025 9:40 AM PRESSFITTER Office Visit [facility] Group Multispecialty Care - [facility] [address] [place] [address] Phoenix Dye MD [facility]rd [facility] [address] [place], [place] [address] documented as of this encounter Visit Diagnoses Not on filedocumented in this encounter Additional Health Concerns Infection Onset Date Last Indicated Resolved Time COVID-19 Rule Out 10/13/2020 10/13/2020 10/13/2020 10:37 AM CDT COVID-19 Rule Out 10/13/2020 10/13/2020 10/13/2020 8:32 PM CDT COVID-19 Rule Out 04/24/2021 04/24/2021 04/24/2021 4:18 PM PRESSFITTER COVID-19 Confirmed 04/24/2021 04/24/2021 12:32 AM PRESSFITTER COVID-19 Rule Out 05/29/2021 05/29/2021 05/29/2021 8:50 AM PRESSFITTER COVID-19 Rule Out 01/17/2023 12/28/2022 01/17/2023 12:11 PM CDT COVID-19 Rule Out 03/27/2023 03/27/2023 03/27/2023 6:02 PM PRESSFITTER Respiratory Rule Out 06/23/2024 06/23/2024 025 9:53 PM PRESSFITTER COVID-19 Rule Out 06/23/2024 06/23/2024 06/23/2024 10:15 PM PRESSFITTER documented as of this encounter Care Teams Reproduction Technician Relationship Specialty Start Date End Date Fredy Gill MD PCP - General 10/05/16 04/14/18 Ciara Layton PA [address] [place] [address] PCP - General PHYSICIAN WEATHER STRIP MECHANIC 04/15/18 Jb Kim MD Three [facility]. [address] [address] Consulting Physician CARDIOVASCULAR DISEASE 10/21/22 Phoenix Dye MD [address] [address] Consulting Physician PULMONARY DISEASE 10/21/22 Jarad Garcia MD 3 [place] [address] Physician NEUROMUSCULOSKELETAL MEDICINE 10/21/22 08/25/23 Emelyn Warren MD [address] [place] [address] Consulting Physician NEUROLOGY 08/26/23 documented as of this encounter
--- OUTSIDE RECORDS SUMMARY | 2024-11-08 16:27 | XMS_ITS | Clinical Summary ---
Author Organization [facility] Address [address] [facility] [place] [address] Care Team Providers Care Lead Programmer Name Role Phone Ciara Layton Primary Care Provider [phone] Source Comments [facility],non-owned Affiliates and Associated Physician Practices is amultiple site organization consisting of ambulatory clinics and hospital sitesin [place], [place], [place] and [place]. This disclosure is being madepursuant to the Care Everywhere program and may not contain all information available regarding this patient. Last updated 18.[facility] Allergies No known active allergies Medications * [...] Active vitamin D, ergocalciferol, (Drisdol) 1.25 MG (37839 UT) capsuleIndicati ons:Vitamin D Deficiency Take 1 [...] VACCINE (1 of 2) 2023 COVID-19 VACCINE (1 - season) 2023 DEPRESSION SCREENING 04/25/2024 01/05/2024 INFLUENZA VACCINE (#1) 2024 SCREENING FOR DIABETES 01/09/2027 , 01/10/2024, [...] BLOOD SPECIMEN / Unknown 01/10/2024 Sharri Parsons TALCER-AIRLINE ATTENDANT LAB - CHEMISTRY ORDERABLES F inal Result OTHER LAB * LIPID PROFILE (01/10/2024) Blood BLOOD SPECIMEN / Unknown 01/10/2024 Sharri Parsons TALCER-AIRLINE ATTENDANT LAB - CHEMISTRY ORDERABLES F inal Result OTHER LAB from Last 3 Months or Most Recently Relevant to Health Maintenance Insurance [facility] Care Teams Lead Programmer Relationship Specialty Start Date End Date Ciara Layton PA [address] [address] PCP - General Physician Collect On Delivery Clerk 10/11/23
--- OUTSIDE RECORDS SUMMARY | 2024-11-08 16:27 | XMS_ITS | Encounter Summary ---
Author Organization [facility] Address Count includes the [facility] [place] [address] Care Team Providers Care Accounts Collector Name Role Phone Ciara Layton Primary Care Provider [phone] Jb Kim MD Unavailable [phone] Phoenix Dye MD Unavailable [phone] Jarad Garcia MD Unavailable [phone] Emelyn Warren MD Unavailable [phone] Encounter Details Date Type Department Care Team (Late st Contact Info) Description 11/07/2022 Nexeont Message [facility] Cardiovascular Outreach [facility] [address] [place] [address] Nicola Parsons MD [facility] [address] [place] [address] Pumps Social History Tobacco Use Types Packs/Day Years Used Date Smoking Tobacco: Never Smokeless Tobacco: Never Comments:Never Smoked Alcohol Use Standard Drinks/Week Comments Yes 0 (1 standard drink = 0.6 oz pur e alcohol) rarely, less than twice a year PHQ-2 Answer Date Recorded Patient Health Questionnaire-2 Score 0 10/07/2022 Sex and Gender Information Value Date Recorded [...] Assessment Author Status No 03/07/2022 7:00 AM LINK CUTTER Activ e * RETIRED Are you blind or do you have serious difficulty seeing, even when wearing glasses? Answer Date of Assessment Author Status No 03/07/2022 8:00 AM LINK CUTTER Activ e * Do you have serious [...] Esposito RN Active documented in this encounter Progress Notes * Katherine Ta RN - 11/08/2022 9:13 AM CDT . documented in this encounter Plan of Treatment Upcoming Encounters Date Type Department Care Team (Late st Contact Info) Description 12/10/2024 12:00 PM CDT Appointment [facility] [address] [place] [address] [facility]. [facility] [address] [place], [place] [phone] 02/22/2025 10:00 AM CDT Office Visit [facility] [address] [facility] [address] [place] [address] Judith Haile, ROVING DEPARTMENT END FINDER-C Three [facility]. [address] [place] [address] 04/04/2025 9:40 AM LINK CUTTER Office Visit [facility] Medical Group Multispecialty Care - [facility] [address] [facility] [place] [address] Phoenix Dye MD 3rd [facility] [address] [place] [address] documented as of this encounter Visit Diagnoses Not on filedocumented in this encounter Additional Health Concerns Infection Onset Date Last Indicated Resolved Time COVID-19 Rule Out 01/17/2023 12/28/2022 01/17/2023 12:11 PM CDT COVID-19 Rule Out 03/27/2023 03/27/2023 03/27/2023 6:02 PM LINK CUTTER Respiratory Rule Out 06/23/2024 06/23/2024 025 9:53 PM LINK CUTTER COVID-19 Rule Out 06/23/2024 06/23/2024 06/23/2024 10:15 PM LINK CUTTER Assessment Noted Time PHQ-9 Depression Total Score: 6 09/30/19 23 10:18 AM CDT documented as of this encounter Care Teams Accounts Collector Relationship Specialty Start Date End Date Ciara Layton PA [address] [place] [address] PCP - General PHYSICIAN RN CHILD 04/15/18 Jb Kim MD Three [facility]. [address] [place], [place] [address] Consulting Physician CARDIOVASCULAR DISEASE 10/21/22 Phoenix Dye MD [address] [place] [address] Consulting Physician PULMONARY DISEASE 10/21/22 Jarad Garcia MD [address] [place] [address] Physician NEUROMUSCULOSKELETAL MEDICINE 10/21/22 08/25/23 Emelyn Warren MD [address] [place] [address] Consulting Physician NEUROLOGY 08/26/23 documented as of this encounter
--- OUTSIDE RECORDS SUMMARY | 2024-11-08 16:27 | XMS_ITS | Encounter Summary ---
Author Organization [facility] Address On license of [facility] [place] [address] Care Team Providers Care Coordinator Of Genetic Services Name Role Phone Ciara Layton Primary Care Provider [phone] Jb Kim MD Unavailable [phone] Phoenix Dye MD Unavailable [phone] Jarad Garcia MD Unavailable [phone] Emelyn Warren MD Unavailable [phone] Reason for Referral * Surgical (Routine) - Closed Specialty Diagnoses / Procedures Referred By Contac t Referred To Contact Diagnoses Varicose veins of lower extremity with pain, right Procedures Case request operating room: GREATER SAPHGNEOUS VEIN LASER ABLATION ( RIGHT LOWER EXTREMITY) AND STAB PHLEBECTOMY (RIGHT LOWER EXTREMITY) Nicola Parsons MD [address] [address] Phone: tel: fax: Referral ID Status Reason Start Date Expiration Date Visits Re quested Visits Authorized [id number] Closed 09/10/2022 09/11/2023 1 1 Encounter Details Date Type Department Care Team (Late st Contact Info) Description 09/10/2022 Prep for Procedure [facility] THREE [facility], [place] [address] [place], [place] [id number] Nicola Parsons MD Three [facility]. [facility] [address] [place], [place] [id number] Social History Tobacco Use Types Packs/Day Years [...] suspected to have Coronavirus/COVID-19? No / Unsure 09/09/2022 1:54 PM CDT documented as of this encounter Functional Status * RETIRED Are you deaf or do you have serious difficulty hearing Answer Date of Assessment Author Status No 03/07/2022 7:00 AM MIDDLE OR INTERMEDIATE SCHOOL PRINCIPAL Activ e * RETIRED Are you blind or do you have serious difficulty seeing, even when wearing glasses? Answer Date of Assessment Author Status No 03/07/2022 8:00 AM MIDDLE OR INTERMEDIATE SCHOOL PRINCIPAL Activ e * Do you have serious [...] Date Author Status No 03/07/2022 8:00 AM MIDDLE OR INTERMEDIATE SCHOOL PRINCIPAL Amanda De La Fuente RN Active documented in this encounter Plan of Treatment Upcoming Encounters Date Type Department Care Team (Late st Contact Info) Description 12/10/2024 12:00 PM CDT Appointment [facility] Ultrasound [address] [place], [place] [id number] Nicola Parsons MD Three [facility]. [address] [address] [place], [place] [address] 02/22/2025 10:00 AM CDT Office Visit [facility] THREE [facility], [address] [address] [place] [address] Judith Haile, HAND PLATE STACKER-C [facility]. [place] [address] [place] [address] 04/04/2025 9:40 AM MIDDLE OR INTERMEDIATE SCHOOL PRINCIPAL Office Visit [facility] Medical Group Multispecialty Care - [facility] 3 [facility] [address] [place] [id number] Phoenix Dye MD [address] [place] [address] [address] [place], [place] [address] Scheduled Orders Name Type Priority Associated Diagnoses Orde r Schedule Case request operating room: GREATER SAPHGNEOUS VEIN LASER ABLATION ( RIGHT LOWER EXTREMITY) AND STAB PHLEBECTOMY (RIGHT LOWER EXTREMITY) Case Request Routine Varicose veins of lower extremity with pain, right Once for 1 Occurrences starting 09/10/2022 until 09/10/2022 documented as of this encounter Visit Diagnoses Diagnosis Varicose veins of lower extremity with pain, right- Primary documented in this encounter Additional Health Concerns Infection Onset Date Last Indicated Resolved Time COVID-19 Rule Out 01/17/2023 12/28/2022 01/17/2023 12:11 PM CDT COVID-19 Rule Out 03/27/2023 03/27/2023 03/27/2023 6:02 PM MIDDLE OR INTERMEDIATE SCHOOL PRINCIPAL Respiratory Rule Out 06/23/2024 06/23/2024 025 9:53 PM MIDDLE OR INTERMEDIATE SCHOOL PRINCIPAL COVID-19 Rule Out 06/23/2024 06/23/2024 06/23/2024 10:15 PM MIDDLE OR INTERMEDIATE SCHOOL PRINCIPAL Assessment Noted Time PHQ-9 Depression Total Score: 0 05/03/19 2:19 PM MIDDLE OR INTERMEDIATE SCHOOL PRINCIPAL documented as of this encounter Care Teams Coordinator Of Genetic Services Relationship Specialty Start Date End Date Ciara Layton PA [address] [place] [address] PCP - General PHYSICIAN GEOPHYSICAL SUPPORT SPECIALIST 04/15/18 Jb Kim MD Three [facility]. [address] [address] Consulting Physician CARDIOVASCULAR DISEASE 10/21/22 Phoenix Dye MD [address] [address] Consulting Physician PULMONARY DISEASE 10/21/22 Jarad Garcia MD [address] [place], [place] [address] Physician NEUROMUSCULOSKELETAL MEDICINE 10/21/22 08/25/23 Emelyn Warren MD [address] [place], [place] [address] Consulting Physician NEUROLOGY 08/26/23 documented as of this encounter
--- OUTSIDE RECORDS SUMMARY | 2024-11-08 16:27 | XMS_ITS | Encounter Summary ---
Author Organization [facility] Address [facility] [place] [address] Care Team Providers Care Hearing Therapy Director Name Role Phone Ciara Layton Primary Care Provider [phone] Jb Kim MD Unavailable [phone] Phoenix Dye MD Unavailable [phone] Jarad Garcia MD Unavailable [phone] Emelyn Warren MD Unavailable [phone] Encounter Details Date Type Department Care Team (Late st Contact Info) Description 10/21/2022 LiveProfilet Message [facility] [place] [address] [facility] Provider Preoperative Instructions Social History Tobacco Use Types Packs/Day Years [...] suspected to have Coronavirus/COVID-19? No / Unsure 10/06/2022 9:37 AM CDT documented as of this encounter Functional Status * RETIRED Are you deaf or do you have serious difficulty hearing Answer Date of Assessment Author Status No 03/07/2022 7:00 AM RESTORATION OFFICER Activ e * RETIRED Are you blind or do you have serious difficulty seeing, even when wearing glasses? Answer Date of Assessment Author Status No 03/07/2022 8:00 AM RESTORATION OFFICER Activ e * Do you have serious [...] Info) Description 12/10/2024 12:00 PM CDT Appointment [facility] [address] [place] [address] Nicola Parsons MD [facility]. [facility] [address] [place], [place] [id number] 02/22/2025 10:00 AM CDT [facility] [address] [place], [place] [id number] Judith Haile, ASSOCIATE PROFESSOR COMPUTER SCIENCE-C [facility]. [address] [place], [place] [address] 04/04/2025 9:40 AM RESTORATION OFFICER Office Visit [facility] Medical Group Multispecialty Care - [facility] [address] [facility] [address] [place] [phone] Phoenix Dye MD [address] [place] [address] [address] [place] [address] documented as of this encounter Visit Diagnoses Not on filedocumented in this encounter Additional Health Concerns Infection Onset Date Last Indicated Resolved Time COVID-19 Rule Out 01/17/2023 12/28/2022 01/17/2023 12:11 PM CDT COVID-19 Rule Out 03/27/2023 03/27/2023 03/27/2023 6:02 PM RESTORATION OFFICER Respiratory Rule Out 06/23/2024 06/23/2024 025 9:53 PM RESTORATION OFFICER COVID-19 Rule Out 06/23/2024 06/23/2024 06/23/2024 10:15 PM RESTORATION OFFICER Assessment Noted Time PHQ-9 Depression Total Score: 6 09/30/19 23 10:18 AM CDT documented as of this encounter Care Teams Hearing Therapy Director Relationship Specialty Start Date End Date Ciara Layton PA [address] [place] [address] PCP - General PHYSICIAN FINAL ASSEMBLER BOAT 04/15/18 Jb Kim MD [facility]. [address] [place] [address] Consulting Physician CARDIOVASCULAR DISEASE 10/21/22 Phoenix Dye MD [address] [address] Consulting Physician PULMONARY DISEASE 10/21/22 Jarad Garcia MD [address] [place] [address] Physician NEUROMUSCULOSKELETAL MEDICINE 10/21/22 08/25/23 Emelyn Warren MD [address] [place] [address] Consulting Physician NEUROLOGY 08/26/23 documented as of this encounter
--- OUTSIDE RECORDS SUMMARY | 2024-11-08 16:27 | XMS_ITS | Encounter Summary ---
Author Organization [facility] Address [facility] [place] [address] Care Team Providers Care Shaper Set Up Operator Name Role Phone Fredy Gill MD Primary Care Provider Unavailable Ciara Layton Primary Care Provider [phone] Jb Kim MD Unavailable [phone] Phoenix Dye MD Unavailable [phone] Jarad Garcia MD Unavailable [phone] Emelyn Warren MD Unavailable [phone] Encounter Details Date Type Department Care Team (Late st Contact Info) Description 02/09/2002 Abstract [facility] Conversion , Generic Conversion, Social History [...] Info) Description 12/10/2024 12:00 PM CDT Appointment [facility] [address] [place] [address] Nicola Parsons MD Three [facility]. [address] [place] [address] 02/22/2025 10:00 AM CDT Office Visit [facility] THREE [facility], [address] [place] [address] Judith Haile, HVAC SHEET METAL INSTALLER-C Three [facility]. [address] [place] [address] 04/04/2025 9:40 AM EXPERIMENTAL MECHANIC OUTBOARD MOTORS Office Visit [facility] Medical Group Multispecialty Care - [facility] 3 [facility] [address] [place] [address] Phoenix Dye MD [address] [place] [address] [address] [place] [address] documented as of this encounter Visit Diagnoses Not on filedocumented in this encounter Additional Health Concerns Infection Onset Date Last Indicated Resolved Time COVID-19 Rule Out 10/13/2020 10/13/2020 10/13/2020 10:37 AM CDT COVID-19 Rule Out 10/13/2020 10/13/2020 10/13/2020 8:32 PM CDT COVID-19 Rule Out 04/24/2021 04/24/2021 04/24/2021 4:18 PM EXPERIMENTAL MECHANIC OUTBOARD MOTORS COVID-19 Confirmed 04/24/2021 04/24/2021 12:32 AM EXPERIMENTAL MECHANIC OUTBOARD MOTORS COVID-19 Rule Out 05/29/2021 05/29/2021 05/29/2021 8:50 AM EXPERIMENTAL MECHANIC OUTBOARD MOTORS COVID-19 Rule Out 01/17/2023 12/28/2022 01/17/2023 12:11 PM CDT COVID-19 Rule Out 03/27/2023 03/27/2023 03/27/2023 6:02 PM EXPERIMENTAL MECHANIC OUTBOARD MOTORS Respiratory Rule Out 06/23/2024 06/23/2024 025 9:53 PM EXPERIMENTAL MECHANIC OUTBOARD MOTORS COVID-19 Rule Out 06/23/2024 06/23/2024 06/23/2024 10:15 PM EXPERIMENTAL MECHANIC OUTBOARD MOTORS documented as of this encounter Care Teams Shaper Set Up Operator Relationship Specialty Start Date End Date GillFredy MD PCP - General 10/05/16 04/14/18 Ciara Layton, PA [address] [place] [address] PCP - General PHYSICIAN CAUSTIC PREPARER 04/15/18 Jb Kim MD Three [facility]. [address] [address] Consulting Physician CARDIOVASCULAR DISEASE 10/21/22 Phoenix Dye MD [address] [place] [address] Consulting Physician PULMONARY DISEASE 10/21/22 Jarad Garcia MD [address] [place] [address] Physician NEUROMUSCULOSKELETAL MEDICINE 10/21/22 08/25/23 Emelyn Warren MD [address] [place] [address] Consulting Physician NEUROLOGY 08/26/23 documented as of this encounter
--- OUTSIDE RECORDS SUMMARY | 2024-11-08 16:27 | XMS_ITS | Encounter Summary ---
Author Organization [facility] Address [facility] [place] [address] Care Team Providers Care Repair Order Clerk Name Role Phone Ciara Layton Primary Care Provider [phone] Jb Kim MD Unavailable [phone] Phoenix Dye MD Unavailable [phone] Emelyn Warren MD Unavailable [phone] Encounter Details Date Type Department Care Team (Late st Contact Info) Description 05/29/2024 MyChart Message [facility] Multispecialty Care - [facility] 3 [facility], [address] [place] [phone] Esteban Cota MD [address] [place] [address] Chiropractic question Social History Tobacco Use Types Packs/Day Years Used Date Smoking Tobacco: Never Passive Smoke Exposure: Never Smokeless Tobacco: Never Alcohol Use Standard Drinks/Week Comments Not Currently 0 (1 standard drink = 0.6 oz pure alcohol) rarely, less than twice a year PHQ-2 Answer Date Recorded Patient Health Questionnaire-2 Score 0 05/03/2024 Sex and Gender Information Value Date Recorded [...] Assessment Author Status No 03/07/2022 7:00 AM TRAVEL GUIDE Activ e * RETIRED Are you blind or do you have serious difficulty seeing, even when wearing glasses? Answer Date of Assessment Author Status No 03/07/2022 8:00 AM TRAVEL GUIDE Activ e * Do you have serious [...] Info) Description 12/10/2024 12:00 PM CDT Appointment [facility]ound [address] [place] [address] Nicola Parsons MD [facility]. [facility] [address] [place] [address] 02/22/2025 10:00 AM CDT [facility] [address] [place] [address] Judith Haile, DIRECTOR OF CATERING SALES-C [facility]. [address] [place] [address] 04/04/2025 9:40 AM TRAVEL GUIDE Office Visit [facility] Medical Group Multispecialty Care - [facility] 3 [facility] [place] [address] Phoenix Dye MD [address] [place] [address] [address] [place] [address] documented as of this encounter Visit Diagnoses Not on filedocumented in this encounter Additional Health Concerns Infection Onset Date Last Indicated Resolved Time Respiratory Rule Out 06/23/2024 06/23/2024 025 9:53 PM TRAVEL GUIDE COVID-19 Rule Out 06/23/2024 06/23/2024 06/23/2024 10:15 PM TRAVEL GUIDE Assessment Noted Time PHQ-9 Depression Total Score: 6 09/30/19 23 10:18 AM CDT documented as of this encounter Care Teams Repair Order Clerk Relationship Specialty Start Date End Date Ciara Layton PA [address] [place] [address] PCP - General PHYSICIAN MACHINE TAILER 04/15/18 Jb Kim MD Three [facility]. [address] [place] [address] Consulting Physician CARDIOVASCULAR DISEASE 10/21/22 Phoenix Dye MD [address] [place] [address] [address] [place] [address] Consulting Physician PULMONARY DISEASE 10/21/22 Eemlyn Warren MD [address] [place] [address] Consulting Physician NEUROLOGY 08/26/23 documented as of this encounter
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
--- OUTSIDE RECORDS SUMMARY | 2024-11-08 16:27 | XMS_ITS | Encounter Summary ---
Author Organization [facility] Address [facility] [place] [address] Care Team Providers Care Senior Hr Manager Name Role Phone Ciara Layton Primary Care Provider [phone] Jb Kim MD Unavailable [phone] Phoenix Dye MD Unavailable [phone] Emelyn Warren MD Unavailable [phone] Encounter Details Date Type Department Care Team (Late st Contact Info) Description 12/22/2023 Prep for Procedure [facility] [address] [facility] [place] [address] [id number] Erika Caceres, AUTOMOTIVE REFINISH TECHNICIAN [address] [place] [phone] [phone] (Work) Social History Tobacco Use Types Packs/Day Years Used Date Smoking Tobacco: Never Passive Smoke Exposure: Never Smokeless Tobacco: Never Alcohol Use Standard Drinks/Week Comments Not Currently 0 (1 standard drink = 0.6 oz pure alcohol) rarely, less than twice a year PHQ-2 Answer Date Recorded Patient Health Questionnaire-2 Score 0 06/06/2023 Sex and Gender Information Value Date Recorded [...] Assessment Author Status No 03/07/2022 7:00 AM FACILITIES FLIGHT CHECK PILOT Activ e * RETIRED Are you blind or do you have serious difficulty seeing, even when wearing glasses? Answer Date of Assessment Author Status No 03/07/2022 8:00 AM FACILITIES FLIGHT CHECK PILOT Activ e * Do you have serious [...] Info) Description 12/10/2024 12:00 PM CDT Appointment [facility] [address] [place] [address] Nicola Parsons MD [facility]. [address] [place], [place] [id number] 02/22/2025 10:00 AM CDT [facility] [address] [place], [place] [id number] Judith Haile, SOFTWARE DEVELOPMENT INTERN-C [facility]. [address] [place] [address] 04/04/2025 9:40 AM FACILITIES FLIGHT CHECK PILOT Office Visit [facility] Multispecialty Care - [facility] [address] [facility] [place] [address] Phoenix Dye MD [address] [facility] [address] [place] [address] documented as of this encounter Visit Diagnoses Not on filedocumented in this encounter Additional Health Concerns Infection Onset Date Last Indicated Resolved Time Respiratory Rule Out 06/23/2024 06/23/2024 025 9:53 PM FACILITIES FLIGHT CHECK PILOT COVID-19 Rule Out 06/23/2024 06/23/2024 06/23/2024 10:15 PM FACILITIES FLIGHT CHECK PILOT Assessment Noted Time PHQ-9 Depression Total Score: 6 09/30/19 23 10:18 AM CDT documented as of this encounter Care Teams Senior Hr Manager Relationship Specialty Start Date End Date Ciara Layton PA [address] [place] [address] PCP - General PHYSICIAN DIRECTOR OF STRATEGIC PARTNERSHIPS 04/15/18 Jb Kim MD Three [facility]. [address] [place] [address] Consulting Physician CARDIOVASCULAR DISEASE 10/21/22 Phoenix Dye MD [address] [facility] [address] [place], [place] [address] Consulting Physician PULMONARY DISEASE 10/21/22 Emelyn Warren MD [address] [place] [address] Consulting Physician NEUROLOGY 08/26/23 documented as of this encounter
--- OUTSIDE RECORDS SUMMARY | 2024-11-08 16:27 | XMS_ITS | Encounter Summary ---
Author Organization [facility] Address [facility] [place] [address] Care Team Providers Care Clay Modeler Name Role Phone Fredy Gill MD Primary Care Provider Unavailable Ciara Layton Primary Care Provider [phone] bJ Kim MD Unavailable [phone] Phoenix Dye MD Unavailable [phone] Jarad Garcia MD Unavailable [phone] Emelyn Warren MD Unavailable [phone] Encounter Details Date Type Department Care Team (Late st Contact Info) Description 08/06/2014 Abstract [facility] Conversion , Generic Conversion, Social [...] Info) Description 12/10/2024 12:00 PM CDT Appointment [facility] [address] [place] [address] Nicola Parsons MD [facility]. [address] [place] [address] 02/22/2025 10:00 AM CDT Office Visit [facility] [facility], [address] [place] [address] Judith Haile, LANGUAGE SPECIALIST-C [facility]. [address] [place] [address] 04/04/2025 9:40 AM MARKLOGIC DEVELOPER Office Visit [facility] Multispecialty Care - [facility] [address] [facility] [place] [address] Phoenix Dye MD [address] [place] [address] [address] [place] [address] documented as of this encounter Visit Diagnoses Not on filedocumented in this encounter Additional Health Concerns Infection Onset Date Last Indicated Resolved Time COVID-19 Rule Out 10/13/2020 10/13/2020 10/13/2020 10:37 AM CDT COVID-19 Rule Out 10/13/2020 10/13/2020 10/13/2020 8:32 PM CDT COVID-19 Rule Out 04/24/2021 04/24/2021 04/24/2021 4:18 PM MARKLOGIC DEVELOPER COVID-19 Confirmed 04/24/2021 04/24/2021 12:32 AM MARKLOGIC DEVELOPER COVID-19 Rule Out 05/29/2021 05/29/2021 05/29/2021 8:50 AM MARKLOGIC DEVELOPER COVID-19 Rule Out 01/17/2023 12/28/2022 01/17/2023 12:11 PM CDT COVID-19 Rule Out 03/27/2023 03/27/2023 03/27/2023 6:02 PM MARKLOGIC DEVELOPER Respiratory Rule Out 06/23/2024 06/23/2024 025 9:53 PM MARKLOGIC DEVELOPER COVID-19 Rule Out 06/23/2024 06/23/2024 06/23/2024 10:15 PM MARKLOGIC DEVELOPER documented as of this encounter Care Teams Clay Modeler Relationship Specialty Start Date End Date GillFredy MD PCP - General 10/05/16 04/14/18 Ciara Layton, PA [address] [place] [address] PCP - General PHYSICIAN MINING SUPPORT WORKER 04/15/18 Jb Kim MD Three [facility]. [address] [address] Consulting Physician CARDIOVASCULAR DISEASE 10/21/22 Phoenix Dye MD [address] [place] [address] Consulting Physician PULMONARY DISEASE 10/21/22 Jarad Garcia MD [address] [place] [address] Physician NEUROMUSCULOSKELETAL MEDICINE 10/21/22 08/25/23 Emelyn Warren MD [address] [place] [address] Consulting Physician NEUROLOGY 08/26/23 documented as of this encounter
--- OUTSIDE RECORDS SUMMARY | 2024-11-08 16:27 | XMS_ITS | Encounter Summary ---
Author Organization [facility] Address [facility] [place] [address] Care Team Providers Care Salvager Helper Name Role Phone Fredy Gill MD Primary Care Provider Unavailable Ciara Lay[place] Primary Care Provider [phone] Jb Kim MD Unavailable [phone] Phoenix Dye MD Unavailable [phone] Jarad Garcia MD Unavailable [phone] Emelyn Warren MD Unavailable [phone] Encounter Details Date Type Department Care Team (Late st Contact Info) Description 02/06/2010 Abstract [facility] Conversion , Generic Conversion, Social History [...] Info) Description 12/10/2024 12:00 PM CDT Appointment [facility] [address] [place] [address] Nicola Parsons MD Three [facility]. [address] [place] [address] 02/22/2025 10:00 AM CDT Office Visit [facility] THREE [facility], [address] [place] [address] Judith Haile, ESTABLISHMENT GUIDE-C Three [facility]. [address] [place] [address] 04/04/2025 9:40 AM ENVIRONMENTAL LAW PROFESSOR Office Visit [facility] Multispecialty Care - [facility] 3 [facility] [address] [place] [address] Phoenix Dye MD [address] [place] [address] [address] [place] [address] documented as of this encounter Visit Diagnoses Not on filedocumented in this encounter Additional Health Concerns Infection Onset Date Last Indicated Resolved Time COVID-19 Rule Out 10/13/2020 10/13/2020 10/13/2020 10:37 AM CDT COVID-19 Rule Out 10/13/2020 10/13/2020 10/13/2020 8:32 PM CDT COVID-19 Rule Out 04/24/2021 04/24/2021 04/24/2021 4:18 PM ENVIRONMENTAL LAW PROFESSOR COVID-19 Confirmed 04/24/2021 04/24/2021 12:32 AM ENVIRONMENTAL LAW PROFESSOR COVID-19 Rule Out 05/29/2021 05/29/2021 05/29/2021 8:50 AM ENVIRONMENTAL LAW PROFESSOR COVID-19 Rule Out 01/17/2023 12/28/2022 01/17/2023 12:11 PM CDT COVID-19 Rule Out 03/27/2023 03/27/2023 03/27/2023 6:02 PM ENVIRONMENTAL LAW PROFESSOR Respiratory Rule Out 06/23/2024 06/23/2024 025 9:53 PM ENVIRONMENTAL LAW PROFESSOR COVID-19 Rule Out 06/23/2024 06/23/2024 06/23/2024 10:15 PM ENVIRONMENTAL LAW PROFESSOR documented as of this encounter Care Teams Salvager Helper Relationship Specialty Start Date End Date GillFredy MD PCP - General 10/05/16 04/14/18 Ciara [place], PA [address] [place] [address] PCP - General PHYSICIAN HORSE RIDER 04/15/18 Jb Kim MD Three [facility]. [address] [address] Consulting Physician CARDIOVASCULAR DISEASE 10/21/22 Phoenix Dye MD [address] [place] [address] Consulting Physician PULMONARY DISEASE 10/21/22 Jarad Garcia MD 3 [place] [address] Physician NEUROMUSCULOSKELETAL MEDICINE 10/21/22 08/25/23 Emelyn Warren MD [address] [place] [address] Consulting Physician NEUROLOGY 08/26/23 documented as of this encounter
--- OUTSIDE RECORDS SUMMARY | 2024-11-08 16:27 | XMS_ITS | Encounter Summary ---
Author Organization [facility] Address [facility] [place] [address] Care Team Providers Care Acid Loader Name Role Phone Fredy Gill MD Primary Care Provider Unavailable Ciara [place] Primary Care Provider [phone] Jb Kim MD Unavailable [phone] Phoenix Dye MD Unavailable [phone] Jarad Garcia MD Unavailable [phone] Emelyn Warren MD Unavailable [phone] Encounter Details Date Type Department Care Team (Late st Contact Info) Description 08/15/2014 Abstract [facility] Conversion , Generic Conversion, Social [...] Info) Description 12/10/2024 12:00 PM CDT Appointment [facility] [address] [place] [address] Nicola Parsons MD Three [facility]. [address] [place] [address] 02/22/2025 10:00 AM CDT Office Visit [facility] THREE [facility], [address] [place] [address] Judith Haile, REFRACTORY GRINDER OPERATOR-C Three [facility]. [address] [place] [address] 04/04/2025 9:40 AM BONSAI TENDER Office Visit [facility] Medical Group Multispecialty Care - [facility] 3 [facility] [place] [address] Phoenix Dye MD [address] [place] [address] [address] [place] [address] documented as of this encounter Visit Diagnoses Not on filedocumented in this encounter Additional Health Concerns Infection Onset Date Last Indicated Resolved Time COVID-19 Rule Out 10/13/2020 10/13/2020 10/13/2020 10:37 AM CDT COVID-19 Rule Out 10/13/2020 10/13/2020 10/13/2020 8:32 PM CDT COVID-19 Rule Out 04/24/2021 04/24/2021 04/24/2021 4:18 PM BONSAI TENDER COVID-19 Confirmed 04/24/2021 04/24/2021 12:32 AM BONSAI TENDER COVID-19 Rule Out 05/29/2021 05/29/2021 05/29/2021 8:50 AM BONSAI TENDER COVID-19 Rule Out 01/17/2023 12/28/2022 01/17/2023 12:11 PM CDT COVID-19 Rule Out 03/27/2023 03/27/2023 03/27/2023 6:02 PM BONSAI TENDER Respiratory Rule Out 06/23/2024 06/23/2024 025 9:53 PM BONSAI TENDER COVID-19 Rule Out 06/23/2024 06/23/2024 06/23/2024 10:15 PM BONSAI TENDER documented as of this encounter Care Teams Acid Loader Relationship Specialty Start Date End Date GillFredy MD PCP - General 10/05/16 04/14/18 Ciara [place], PA [address] [place] [address] PCP - General PHYSICIAN MEDICAL IMAGING TECH 04/15/18 Jb Kim MD Three [facility]. [address] [address] Consulting Physician CARDIOVASCULAR DISEASE 10/21/22 Phoenix Dye MD [address] [place] [address] Consulting Physician PULMONARY DISEASE 10/21/22 Jarad Garcia MD 3 [place] [address] Physician NEUROMUSCULOSKELETAL MEDICINE 10/21/22 08/25/23 Emelyn Warren MD [address] [place] [address] Consulting Physician NEUROLOGY 08/26/23 documented as of this encounter
--- OUTSIDE RECORDS SUMMARY | 2024-11-08 16:27 | XMS_ITS | Encounter Summary ---
Author Organization [facility] Address [facility] [place] [address] Care Team Providers Care Spring Former Hand Name Role Phone Fredy Glil MD Primary Care Provider Unavailable Ciara [place] Primary Care Provider [phone] Jb Kim MD Unavailable [phone] Phoenix Dye MD Unavailable [phone] Jarad Garcia MD Unavailable [phone] Emelyn Warren MD Unavailable [phone] Encounter Details Date Type Department Care Team (Late st Contact Info) Description 06/10/2015 Abstract [facility] Willis Jo MD [id number] [place] [address] Social History Tobacco Use Types Packs/Day Years Used Date Smoking Tobacco: Never Assessed Sex and Gender Information Value Date Recorded Sex Assigned at Male 12/10/2020 9:56 AM CDT Legal Sex Male 5:50 PM CDT Gender Identity Male 12/10/2020 9:56 AM CDT Sexual Orientation Straight 12/10/2020 9: 56 AM CDT documented as of this encounter Miscellaneous Notes * Letter - iWllis Jo MD - 06/10/2015 12:00 AM CST Jun 13, 2015 Please excuse, Willis Izquierdo, from work/school on 06-11-2015 to 06-13-2015, due to illness and/or injury. Willis is released to return to work/school with no restrictions on 06-13-2015. Thank you, Willis Jo MD F DEPUTY * Letter - Willis Jo MD - 06/10/2015 12:00 AM CST Jun 10, 2015 Please excuse, Willis Bobby Timbo, from work on 06-11-2015 to 06-13-2015, due to illness and/or injury. Willis is released to return to work/school with no restrictions on 06-14-2015. Thank you, Willis Jo MD F DEPUTY documented in this encounter Plan of Treatment Upcoming Encounters Date Type Department Care Team (Late st Contact Info) Description 12/10/2024 12:00 PM CDT Appointment [facility] [address] [place], [place] [id number] Nicola Parsons MD [facility]. [address] [place], [place] [address] 02/22/2025 10:00 AM CDT Office Visit [facility] THREE [facility], [address] [place], [place] [address] Judith Haile, ORDER CHECKER PACKER PROCESSER-C [facility]. [address] [place] [address] 04/04/2025 9:40 AM CHIEF DEPUTY Office Visit [facility] Medical Group Multispecialty Care - [facility] 3 [facility] [address] [place] [address] Phoenix Dye MD 3rd [facility] [address] [place] [address] documented as of this encounter Visit Diagnoses Not on filedocumented in this encounter Additional Health Concerns Infection Onset Date Last Indicated Resolved Time COVID-19 Rule Out 10/13/2020 10/13/2020 10/13/2020 10:37 AM CDT COVID-19 Rule Out 10/13/2020 10/13/2020 10/13/2020 8:32 PM CDT COVID-19 Rule Out 04/24/2021 04/24/2021 04/24/2021 4:18 PM CHIEF DEPUTY COVID-19 Confirmed 04/24/2021 04/24/2021 12:32 AM CHIEF DEPUTY COVID-19 Rule Out 05/29/2021 05/29/2021 05/29/2021 8:50 AM CHIEF DEPUTY COVID-19 Rule Out 01/17/2023 12/28/2022 01/17/2023 12:11 PM CDT COVID-19 Rule Out 03/27/2023 03/27/2023 03/27/2023 6:02 PM CHIEF DEPUTY Respiratory Rule Out 06/23/2024 06/23/2024 025 9:53 PM CHIEF DEPUTY COVID-19 Rule Out 06/23/2024 06/23/2024 06/23/2024 10:15 PM CHIEF DEPUTY documented as of this encounter Care Teams Spring Former Hand Relationship Specialty Start Date End Date Fredy Gill MD PCP - General 10/05/16 04/14/18 Ciara Layton PA [address] [place] [address] PCP - General PHYSICIAN ROD PLACER 04/15/18 Jb Kim MD Three [facility]. [facility] [address] [place] [address] Consulting Physician CARDIOVASCULAR DISEASE 10/21/22 Phoenix Dye MD [address] [place] [address] Consulting Physician PULMONARY DISEASE 10/21/22 Jarad Garcia MD [address] [place] [address] Physician NEUROMUSCULOSKELETAL MEDICINE 10/21/22 08/25/23 Emelyn Warren MD [address] [place] [address] Consulting Physician NEUROLOGY 08/26/23 documented as of this encounter
--- OUTSIDE RECORDS SUMMARY | 2024-11-08 16:27 | XMS_ITS | Encounter Summary ---
Author Organization [facility] Address [facility] [place] [address] Care Team Providers Care Clinical Assoc Name Role Phone Ciara [place] Primary Care Provider [phone] Jb Kim MD Unavailable [phone] Phoenix Dye MD Unavailable [phone] Jaard Garcia MD Unavailable [phone] Emelyn Warren MD Unavailable [phone] Encounter Details Date Type Department Care Team (Late st Contact Info) Description 10/28/2022 Pre-Procedure Call [facility] [place] [address] [id number] Minnie Mays CNA Social History Tobacco Use Types Packs/Day Years [...] Recorded In the last 10 days, have velasquez neville been in contact with someone who was confirmed or suspected to have Coronavirus/COVID-19? No / Unsure 10/06/2022 9:37 AM CDT documented as of this encounter Functional Status * RETIRED Are you deaf or do you have serious difficulty hearing Answer Date of Assessment Author Status No 03/07/2022 7:00 AM CELL ROOM SUPERVISOR Activ e * RETIRED Are you blind or do you have serious difficulty seeing, even when wearing glasses? Answer Date of Assessment Author Status No 03/07/2022 8:00 AM CELL ROOM SUPERVISOR Activ e * Do you have serious [...] of Assessment Author Status No Risk Indicated 10/29/2022 9:15 AM DANICAT Ciara Clark RN Active * [place] Suicide Severity Rating Scale (Screener/Recent Self-Report) Question Answer Date of Assessment Author Status 1. Wish to be (Past 1 Month) No 10/29/2022 9:15 AM CDCiara Dias RN Active 2. Non-Specific Active Suicidal Thoughts (Past 1 Month) No 10/29/2022 9:15 AM Ciara Brandt RN Active 6. Suicidal Behavior (Lifetime) No 10/29/2022 9:15 AM Ciara Brandt RN Active documented as of this encounter Mental Status * Because of a physical, mental, or emotional condition, do you have serious difficulty concentrating, remembering, or making decisions? Answer Entry Date Author Status No 03/07/2022 8:00 AM CELL ROOM SUPERVISOR Amanda De La Fuente RN Active documented in this encounter Plan of Treatment Upcoming Encounters Date Type Department Care Team (Late st Contact Info) Description 12/10/2024 12:00 PM CDT Appointment [facility] [address] [place], [place] [id number] Nicola Parsons MD Three [facility]. [address] [place], [place] [address] 02/22/2025 10:00 AM CDT Office Visit [facility] THREE [facility], [address] [place] [address] Judith Haile, BUNCH MAKER-C Three [facility]. [address] [place] [address] 04/04/2025 9:40 AM CELL ROOM SUPERVISOR Office Visit [facility] Medical Group Mult[facility]pecialty Care - [facility] [address] [facility] [address] [place] [address] Phoenix Dye MD 3rd [facility] [address] [place] [address] documented as of this encounter Visit Diagnoses Not on filedocumented in this encounter Additional Health Concerns Infection Onset Date Last Indicated Resolved Time COVID-19 Rule Out 01/17/2023 12/28/2022 01/17/2023 12:11 PM CDT COVID-19 Rule Out 03/27/2023 03/27/2023 03/27/2023 6:02 PM CELL ROOM SUPERVISOR Respiratory Rule Out 06/23/2024 06/23/2024 025 9:53 PM CELL ROOM SUPERVISOR COVID-19 Rule Out 06/23/2024 06/23/2024 06/23/2024 10:15 PM CELL ROOM SUPERVISOR Assessment Noted Time PHQ-9 Depression Total Score: 6 09/30/19 23 10:18 AM CDT documented as of this encounter Care Teams Clinical Assoc Relationship Specialty Start Date End Date Ciara Layton PA [address] [place] [address] PCP - General PHYSICIAN GLOBAL CLINICAL LEADER 04/15/18 Jb Kim MD Three [facility]. [address] [address] Consulting Physician CARDIOVASCULAR DISEASE 10/21/22 Phoenix Dye MD [address] [address] Consulting Physician PULMONARY DISEASE 10/21/22 Jarad Garcia MD 3 [place], [place] [address] Physician NEUROMUSCULOSKELETAL MEDICINE 10/21/22 08/25/23 Emelyn Warren MD [address] [place] [address] Consulting Physician NEUROLOGY 08/26/23 documented as of this encounter
== END 2024-11-08 16:21 | disposition home or self-care (01) ==
PROVIDERS: Visit Provider Otolaryngology Otolaryngology/Facial Plastic Surgery
DX: H90.3 Sensorineural hearing loss, bilateral (principal)
CPT/HCPCS: 70553; A9577

== ENCOUNTER 2024-12-07 15:23 | Outpatient (CLI) | payer OTHER, SELFPAY ==
--- OUTSIDE RECORDS SUMMARY | 2024-12-07 15:28 | XMS_ITS | Encounter Summary ---
Author Organization [facility] Address [facility] [place] [address] Care Team Providers Care Quality Tech Name Role Phone Ciara Layton Primary Care Provider [phone] Jb Kim MD Unavailable [phone] Phoenix Dye MD Unavailable [phone] Jarad Garcia MD Unavailable [phone] Emelyn Warren MD Unavailable [phone] Encounter Details Date Type Department Care Team (Late st Contact Info) Description 03/24/2023 MyChart Message Enc [facility] [address] [place] [address] Roberta Monge, PT [address] [place], [place] [id number] PT Social History Tobacco Use Types Packs/Day [...] Assessment Author Status No 03/07/2022 7:00 AM HYPERTRICHOLOGIST Activ e * RETIRED Are you blind or do you have serious difficulty seeing, even when wearing glasses? Answer Date of Assessment Author Status No 03/07/2022 8:00 AM HYPERTRICHOLOGIST Activ e * Do you have serious [...] 5:04 PM Mei Nielsen RN Active * [place] Suicide Severity Rating Scale (Screener/Recent Self-Report) Question [...] Info) Description 12/10/2024 12:00 PM CDT Appointment [facility] [address] [place] [address] Nicola Parsons MD Three [facility]. [address] [place] [address] 02/22/2025 10:00 AM CDT Office Visit [facility] [facility] [address] [place] [address] Judith Haile, PAPER REWINDER-C Three [facility]. [address] [place] [address] 04/04/2025 9:40 AM HYPERTRICHOLOGIST Office [facility] Multispecialty Care - [facility] 3 [facility] [address] [place] [address] Phoenix Dye MD 3rd [facility] [address] [place] [address] documented as of this encounter Visit Diagnoses Not on filedocumented in this encounter Additional Health Concerns Infection Onset Date Last Indicated Resolved Time COVID-19 Rule Out 03/27/2023 03/27/2023 03/27/2023 6:02 PM HYPERTRICHOLOGIST Respiratory Rule Out 06/23/2024 06/23/2024 025 9:53 PM HYPERTRICHOLOGIST COVID-19 Rule Out 06/23/2024 06/23/2024 06/23/2024 10:15 PM HYPERTRICHOLOGIST Assessment Noted Time PHQ-9 Depression Total Score: 6 09/30/19 23 10:18 AM CDT documented as of this encounter Care Teams Quality Tech Relationship Specialty Start Date End Date Ciara Layton PA [address] [place] [address] PCP - General PHYSICIAN EYEGLASS CUTTER 04/15/18 Jb Kim MD Three [address] [address] Consulting Physician CARDIOVASCULAR DISEASE 10/21/22 Phoenix Dye MD [address] [place] [address] Consulting Physician PULMONARY DISEASE 10/21/22 Jarad Garcia MD 3 [place], [place] [address] Physician NEUROMUSCULOSKELETAL MEDICINE 10/21/22 08/25/23 Emelyn Warren MD [address] [place] [address] Consulting Physician NEUROLOGY 08/26/23 documented as of this encounter
--- OUTSIDE RECORDS SUMMARY | 2024-12-07 15:28 | XMS_ITS | Encounter Summary ---
Author Organization [facility] Address [facility] [place] [address] Care Team Providers Care Forming Fixer Name Role Phone Fredy Gill MD Primary Care Provider Unavailable Ciara Layton Primary Care Provider [phone] Jb Kmi MD Unavailable [phone] Phoenix Dye MD Unavailable [phone] Jarad Garcia MD Unavailable [phone] Emelyn Warren MD Unavailable [phone] Encounter Details Date Type Department Care Team (Late st Contact Info) Description 08/18/2006 Abstract [facility] Conversion , Generic Conversion, [...] Info) Description 12/10/2024 12:00 PM CDT Appointment [facility] [address] [place] [address] Nicola Parsons MD Three [facility]. [address] [place] [address] 02/22/2025 10:00 AM CDT Office Visit [facility] THREE [facility], [address] [place] [address] Judith Haile, TALENT PARTNER-C Three [facility]. [address] [place] [address] 04/04/2025 9:40 AM MENTAL HEALTH TECH Office Visit [facility] Medical Group Multispecialty Care - [facility] 3 [facility] [address] [place] [address] Phoenix Dye MD [address] [place] [address] [address] [place] [address] documented as of this encounter Visit Diagnoses Not on filedocumented in this encounter Additional Health Concerns Infection Onset Date Last Indicated Resolved Time COVID-19 Rule Out 10/13/2020 10/13/2020 10/13/2020 10:37 AM CDT COVID-19 Rule Out 10/13/2020 10/13/2020 10/13/2020 8:32 PM CDT COVID-19 Rule Out 04/24/2021 04/24/2021 04/24/2021 4:18 PM MENTAL HEALTH TECH COVID-19 Confirmed 04/24/2021 04/24/2021 12:32 AM MENTAL HEALTH TECH COVID-19 Rule Out 05/29/2021 05/29/2021 05/29/2021 8:50 AM MENTAL HEALTH TECH COVID-19 Rule Out 01/17/2023 12/28/2022 01/17/2023 12:11 PM CDT COVID-19 Rule Out 03/27/2023 03/27/2023 03/27/2023 6:02 PM MENTAL HEALTH TECH Respiratory Rule Out 06/23/2024 06/23/2024 025 9:53 PM MENTAL HEALTH TECH COVID-19 Rule Out 06/23/2024 06/23/2024 06/23/2024 10:15 PM MENTAL HEALTH TECH documented as of this encounter Care Teams Forming Fixer Relationship Specialty Start Date End Date GillFredy MD PCP - General 10/05/16 04/14/18 Ciara Layton, PA [address] [place] [address] PCP - General PHYSICIAN BOILERMAKER HELPER 04/15/18 Jb Kim MD Three [facility]. [address] [address] Consulting Physician CARDIOVASCULAR DISEASE 10/21/22 Phoenix Dye MD [address] [place] [address] Consulting Physician PULMONARY DISEASE 10/21/22 Jarad Garcia MD 3 [place] [address] Physician NEUROMUSCULOSKELETAL MEDICINE 10/21/22 08/25/23 Emelyn Warren MD [address] [place] [address] Consulting Physician NEUROLOGY 08/26/23 documented as of this encounter
--- OUTSIDE RECORDS SUMMARY | 2024-12-07 15:28 | XMS_ITS | Encounter Summary ---
Author Organization [facility] Address [facility] [place] [address] Care Team Providers Care Drone Operator Name Role Phone Fredy Gill MD Primary Care Provider Unavailable Ciara Layton Primary Care Provider [phone] Jb Kim MD Unavailable [phone] Phoenix Dye MD Unavailable [phone] Jarad Garcia MD Unavailable [phone] Emelyn Warren MD Unavailable [phone] Encounter Details Date Type Department Care Team (Late st Contact Info) Description 07/15/2006 Abstract [facility] Clinics Conversion , Generic Conversion, [...] Info) Description 12/10/2024 12:00 PM CDT Appointment [facility] [address] [place] [address] Nicola Parsons MD Three [facility]. [address] [place] [address] 02/22/2025 10:00 AM CDT Office Visit [facility] THREE [facility], [address] [place] [address] Judith Haile, CHEMICAL PLANT OPERATOR-C Three [facility]. [address] [place] [address] 04/04/2025 9:40 AM CURTAIN HEMMER AUTOMATIC Office Visit [facility] - [facility] [address] [place] [address] Phoenix Dye MD [address] [place] [address] [address] [place] [address] documented as of this encounter Visit Diagnoses Not on filedocumented in this encounter Additional Health Concerns Infection Onset Date Last Indicated Resolved Time COVID-19 Rule Out 10/13/2020 10/13/2020 10/13/2020 10:37 AM CDT COVID-19 Rule Out 10/13/2020 10/13/2020 10/13/2020 8:32 PM CDT COVID-19 Rule Out 04/24/2021 04/24/2021 04/24/2021 4:18 PM CURTAIN HEMMER AUTOMATIC COVID-19 Confirmed 04/24/2021 04/24/2021 12:32 AM CURTAIN HEMMER AUTOMATIC COVID-19 Rule Out 05/29/2021 05/29/2021 05/29/2021 8:50 AM CURTAIN HEMMER AUTOMATIC COVID-19 Rule Out 01/17/2023 12/28/2022 01/17/2023 12:11 PM CDT COVID-19 Rule Out 03/27/2023 03/27/2023 03/27/2023 6:02 PM CURTAIN HEMMER AUTOMATIC Respiratory Rule Out 06/23/2024 06/23/2024 025 9:53 PM CURTAIN HEMMER AUTOMATIC COVID-19 Rule Out 06/23/2024 06/23/2024 06/23/2024 10:15 PM CURTAIN HEMMER AUTOMATIC documented as of this encounter Care Teams Drone Operator Relationship Specialty Start Date End Date GillFredy MD PCP - General 10/05/16 04/14/18 Ciara Layton, PA [address] [place] [address] PCP - General PHYSICIAN LINER ROLL CHANGER 04/15/18 Jb Kim MD Three [facility]. [address] [address] Consulting Physician CARDIOVASCULAR DISEASE 10/21/22 Phoenix Dye MD [address] [place] [address] Consulting Physician PULMONARY DISEASE 10/21/22 Jarad Garcia MD [address] [place] [address] Physician NEUROMUSCULOSKELETAL MEDICINE 10/21/22 08/25/23 Emelyn Warren MD [address] [place] [address] Consulting Physician NEUROLOGY 08/26/23 documented as of this encounter
--- OUTSIDE RECORDS SUMMARY | 2024-12-07 15:28 | XMS_ITS | Encounter Summary ---
Author Organization [facility] Address [facility] [place] [address] Care Team Providers Care Book Agent Name Role Phone Fredy Gill MD Primary Care Provider Unavailable Ciara Layton Primary Care Provider [phone] Jb Kim MD Unavailable [phone] Phoenix Dye MD Unavailable [phone] Jarad Garcia MD Unavailable [phone] Emelyn Warren MD Unavailable [phone] Encounter Details Date Type Department Care Team (Late st Contact Info) Description 12/05/2006 Abstract [facility] Clinics Conversion , Generic Conversion, Social [...] Info) Description 12/10/2024 12:00 PM CDT Appointment [facility] [address] [place] [address] Nicola Parsons MD Three [facility]. [address] [place] [address] 02/22/2025 10:00 AM CDT Office Visit [facility] [address] [facility], [address] [place] [address] Judith Haile, SALES PLANNING MANAGER-C Three [facility]. [address] [place] [address] 04/04/2025 9:40 AM DIAL POLISHER Office Visit [facility] Medical Group Multispecialty Care - [facility] 3 [facility] [place] [address] Phoenix Dye MD [address] [place] [address] [address] [place] [address] documented as of this encounter Visit Diagnoses Not on filedocumented in this encounter Additional Health Concerns Infection Onset Date Last Indicated Resolved Time COVID-19 Rule Out 10/13/2020 10/13/2020 10/13/2020 10:37 AM CDT COVID-19 Rule Out 10/13/2020 10/13/2020 10/13/2020 8:32 PM CDT COVID-19 Rule Out 04/24/2021 04/24/2021 04/24/2021 4:18 PM DIAL POLISHER COVID-19 Confirmed 04/24/2021 04/24/2021 12:32 AM DIAL POLISHER COVID-19 Rule Out 05/29/2021 05/29/2021 05/29/2021 8:50 AM DIAL POLISHER COVID-19 Rule Out 01/17/2023 12/28/2022 01/17/2023 12:11 PM CDT COVID-19 Rule Out 03/27/2023 03/27/2023 03/27/2023 6:02 PM DIAL POLISHER Respiratory Rule Out 06/23/2024 06/23/2024 025 9:53 PM DIAL POLISHER COVID-19 Rule Out 06/23/2024 06/23/2024 06/23/2024 10:15 PM DIAL POLISHER documented as of this encounter Care Teams Book Agent Relationship Specialty Start Date End Date GillFredy MD PCP - General 10/05/16 04/14/18 Ciara Layton, PA [address] [place] [address] PCP - General PHYSICIAN BLOWER BLAST FURNACE 04/15/18 Jb Kim MD Three [facility]. [address] [address] Consulting Physician CARDIOVASCULAR DISEASE 10/21/22 Phoenix Dye MD [address] [place] [address] Consulting Physician PULMONARY DISEASE 10/21/22 Jarad Garcia MD [address] [place] [address] Physician NEUROMUSCULOSKELETAL MEDICINE 10/21/22 08/25/23 Emelyn Warren MD [address] [place] [address] Consulting Physician NEUROLOGY 08/26/23 documented as of this encounter
--- OUTSIDE RECORDS SUMMARY | 2024-12-07 15:29 | XMS_ITS | Encounter Summary ---
Author Organization [facility] Address [facility] [place] [address] Care Team Providers Care Lease Purchase Driver Name Role Phone Fredy Gill MD Primary Care Provider Unavailable Ciara Layton Primary Care Provider [phone] Jb Kim MD Unavailable [phone] Phoenix Dye MD Unavailable [phone] Jarad Garcia MD Unavailable [phone] Emelyn Warren MD Unavailable [phone] Encounter Details Date Type Department Care Team (Late st Contact Info) Description 02/06/2010 Abstract [facility] Clinics Conversion , Generic Conversion, [...] Info) Description 12/10/2024 12:00 PM CDT Appointment [facility] [address] [place] [address] Nicola Parsons MD Three [facility]. [address] [place] [address] 02/22/2025 10:00 AM CDT Office Visit [facility] THREE [facility], [address] [place] [address] Judith Haile, DANCE MASTER-C Three [facility]. [address] [place] [address] 04/04/2025 9:40 AM CATCHER HELPER Office Visit [facility] Medical Group Multispecialty Care - [facility] 3 [facility] [place] [address] Phoenix Dye MD [address] [place] [address] [address] [place] [address] documented as of this encounter Visit Diagnoses Not on filedocumented in this encounter Additional Health Concerns Infection Onset Date Last Indicated Resolved Time COVID-19 Rule Out 10/13/2020 10/13/2020 10/13/2020 10:37 AM CDT COVID-19 Rule Out 10/13/2020 10/13/2020 10/13/2020 8:32 PM CDT COVID-19 Rule Out 04/24/2021 04/24/2021 04/24/2021 4:18 PM CATCHER HELPER COVID-19 Confirmed 04/24/2021 04/24/2021 12:32 AM CATCHER HELPER COVID-19 Rule Out 05/29/2021 05/29/2021 05/29/2021 8:50 AM CATCHER HELPER COVID-19 Rule Out 01/17/2023 12/28/2022 01/17/2023 12:11 PM CDT COVID-19 Rule Out 03/27/2023 03/27/2023 03/27/2023 6:02 PM CATCHER HELPER Respiratory Rule Out 06/23/2024 06/23/2024 025 9:53 PM CATCHER HELPER COVID-19 Rule Out 06/23/2024 06/23/2024 06/23/2024 10:15 PM CATCHER HELPER documented as of this encounter Care Teams Lease Purchase Driver Relationship Specialty Start Date End Date GillFredy MD PCP - General 10/05/16 04/14/18 Ciara Layton, PA [address] [place] [address] PCP - General PHYSICIAN HOT STRIP MILL SUPERVISOR 04/15/18 Jb Kim MD Three [facility]. [address] [address] Consulting Physician CARDIOVASCULAR DISEASE 10/21/22 Phoenix Dye MD [address] [place] [address] Consulting Physician PULMONARY DISEASE 10/21/22 Jarad Garcia MD [address] [place] [address] Physician NEUROMUSCULOSKELETAL MEDICINE 10/21/22 08/25/23 Emelyn Warren MD [address] [place] [address] Consulting Physician NEUROLOGY 08/26/23 documented as of this encounter
--- OUTSIDE RECORDS SUMMARY | 2024-12-07 15:29 | XMS_ITS | Encounter Summary ---
Author Organization [facility] Address [facility] [place] [address] Care Team Providers Care Speech Coach Name Role Phone Ciara Layton Primary Care Provider [phone] Jb Kim MD Unavailable [phone] Phoenix Dye MD Unavailable [phone] Jarad Garcia MD Unavailable [phone] Emelyn Warren MD Unavailable [phone] Encounter Details Date Type Department Care Team (Late st Contact Info) Description 04/26/2023 MyChart Message Enc [facility] Medical Group Multispecialty Care - [facility] [address] [facility] [address] [place] [address] Judith Garber, ELENA [address] [place] [address] MRA scan Social History Tobacco [...] Assessment Author Status No 03/07/2022 7:00 AM BUTTON CUTTING MACHINE OPERATOR Activ e * RETIRED Are you blind or do you have serious difficulty seeing, even when wearing glasses? Answer Date of Assessment Author Status No 03/07/2022 8:00 AM BUTTON CUTTING MACHINE OPERATOR Activ e * Do you have serious [...] 9:30 AM Scott Katz RN Active * [place] Suicide Severity Rating Scale (Screener/Recent Self-Report) Question Answer Date of Assessment Author Status 1. Wish to be (Past 1 Month) No 04/29/2023 9:30 AM Tania Katz RN Act carlita 2. Non-Specific Active Suicidal Thoughts (Past 1 Month) No 04/29/2023 9:30 AM BUTTON CUTTING MACHINE OPERATOR Tania Lr RN Act carlita 6. Suicidal Behavior (Lifetime) No 04/29/2023 9:30 AM BUTTON CUTTING MACHINE OPERATOR Tania Lr RN Act carlita documented as of this encounter Mental Status * Because of a physical, mental, or emotional condition, do you have serious difficulty concentrating, remembering, or making decisions? Answer Entry Date Author Status No 03/07/2022 8:00 AM BUTTON CUTTING MACHINE OPERATOR Amanda De La Fuente RN Active documented in this encounter Plan of Treatment Upcoming Encounters Date Type Department Care Team (Late st Contact Info) Description 12/10/2024 12:00 PM CDT Appointment [facility] [address] [place], [place] [id number] Nicola Parsons MD Three [facility]. [address] [place], [place] [address] 02/22/2025 10:00 AM CDT Office Visit [facility] [address] [place], [place] [address] Judith Haile, QUANTITATIVE ANALYST MARKETING-C Three [facility]. [address] [place] [address] 04/04/2025 9:40 AM BUTTON CUTTING MACHINE OPERATOR Office Visit [facility] Medical Group Multispecialty Care - [facility] [address] [place] [address] Phoenix Dye MD [address] [place] [address] [address] [place] [address] documented as of this encounter Visit Diagnoses Not on filedocumented in this encounter Additional Health Concerns Infection Onset Date Last Indicated Resolved Time Respiratory Rule Out 06/23/2024 06/23/2024 025 9:53 PM BUTTON CUTTING MACHINE OPERATOR COVID-19 Rule Out 06/23/2024 06/23/2024 06/23/2024 10:15 PM BUTTON CUTTING MACHINE OPERATOR Assessment Noted Time PHQ-9 Depression Total Score: 6 09/30/19 10:18 AM CDT documented as of this encounter Care Teams Speech Coach Relationship Specialty Start Date End Date Ciara Layton PA [address] [place] [address] PCP - General PHYSICIAN WILDLAND FIRE OPERATIONS SPECIALIST 04/15/18 Jb Kim MD Three [address] [address] Consulting Physician CARDIOVASCULAR DISEASE 10/21/22 Phoenix Dye MD [address] [address] Consulting Physician PULMONARY DISEASE 10/21/22 Jarad Garcia MD 3 [place] [address] Physician NEUROMUSCULOSKELETAL MEDICINE 10/21/22 08/25/23 Emelyn Warren MD [address] [place] [address] Consulting Physician NEUROLOGY 08/26/23 documented as of this encounter
--- OUTSIDE RECORDS SUMMARY | 2024-12-07 15:29 | XMS_ITS | Encounter Summary ---
Author Organization [facility] Address [facility] [place] [address] Care Team Providers Care Performance Improvement Coordinator Name Role Phone Ciara Layton Primary Care Provider [phone] Jb Kim MD Unavailable [phone] Phoenix Dye MD Unavailable [phone] Jarad Garcia MD Unavailable [phone] Emelyn Warren MD Unavailable [phone] Encounter Details Date Type Department Care Team (Late st Contact Info) Description 10/21/2022 iPrism Global Message [facility] [place] [address] [facility] Provider Preoperative Instructions Social History Tobacco Use [...] Assessment Author Status No 03/07/2022 7:00 AM PROMOTIONAL MODEL Activ e * RETIRED Are you blind or do you have serious difficulty seeing, even when wearing glasses? Answer Date of Assessment Author Status No 03/07/2022 8:00 AM PROMOTIONAL MODEL Activ e * Do you have serious [...] Info) Description 12/10/2024 12:00 PM CDT Appointment [facility] [address] [place] [address] Nicola Parsons MD [facility]. [facility] [address] [place], [place] [address] 02/22/2025 10:00 AM CDT [facility] [address] [place], [place] [address] Judith Haile, ADULT LITERACY TEACHER-C [facility]. [address] [place], [place] [address] 04/04/2025 9:40 AM PROMOTIONAL MODEL Office Visit [facility] Medical Group Multispecialty Care - [facility] 3 [facility] [place] [address] Phoenix Dye MD [address] [place] [address] [address] [place] [address] documented as of this encounter Visit Diagnoses Not on filedocumented in this encounter Additional Health Concerns Infection Onset Date Last Indicated Resolved Time COVID-19 Rule Out 01/17/2023 12/28/2022 01/17/2023 12:11 PM CDT COVID-19 Rule Out 03/27/2023 03/27/2023 03/27/2023 6:02 PM PROMOTIONAL MODEL Respiratory Rule Out 06/23/2024 06/23/2024 025 9:53 PM PROMOTIONAL MODEL COVID-19 Rule Out 06/23/2024 06/23/2024 06/23/2024 10:15 PM PROMOTIONAL MODEL Assessment Noted Time PHQ-9 Depression Total Score: 6 09/30/19 23 10:18 AM CDT documented as of this encounter Care Teams Performance Improvement Coordinator Relationship Specialty Start Date End Date Ciara Layton PA [address] [place] [address] PCP - General PHYSICIAN STRUCTURES MECHANIC 04/15/18 Jb Kim MD [facility]. [address] [place] [address] Consulting Physician CARDIOVASCULAR DISEASE 10/21/22 Phoenix Dye MD [address] [address] Consulting Physician PULMONARY DISEASE 10/21/22 Jarad Garcia MD 3 [place] [address] Physician NEUROMUSCULOSKELETAL MEDICINE 10/21/22 08/25/23 Emelyn Warren MD [address] [place] [address] Consulting Physician NEUROLOGY 08/26/23 documented as of this encounter
--- OUTSIDE RECORDS SUMMARY | 2024-12-07 15:29 | XMS_ITS | Encounter Summary ---
Author Organization [facility] Address [facility] [place] [address] Care Team Providers Care Trim Line Worker Name Role Phone Ciara Layton Primary Care Provider [phone] Jb Kim MD Unavailable [phone] Phoenix Dye MD Unavailable [phone] Jarad Garcia MD Unavailable [phone] Emelyn Warren MD Unavailable [phone] Encounter Details Date Type Department Care Team (Late st Contact Info) Description 11/07/2022 Jiglut Message [facility] Cardiovascular Outreach [facility] [address] [place] [address] Nicola Pasrons MD [facility] [address] [place] [address] Pumps Social History Tobacco Use [...] Assessment Author Status No 03/07/2022 7:00 AM DEPUTY JUVENILE OFFICER Activ e * RETIRED Are you blind or do you have serious difficulty seeing, even when wearing glasses? Answer Date of Assessment Author Status No 03/07/2022 8:00 AM DEPUTY JUVENILE OFFICER Activ e * Do you have [...] Info) Description 12/10/2024 12:00 PM CDT Appointment [facility] [address] [place] [address] Nicola Parsons MD [facility]. [facility] [address] [place], [place] [address] 02/22/2025 10:00 AM CDT Office [facility] [address] [place] [address] Judith Haile, MANAGER MARKET RESEARCH-C Three [facility]. [address] [place] [address] 04/04/2025 9:40 AM DEPUTY JUVENILE OFFICER Office Visit [facility] Medical Group Multispecialty Care - [facility] 3 [facility] [address] [place] [address] Phoenix Dye MD [address] [facility] [address] [place] [address] documented as of this encounter Visit Diagnoses Not on filedocumented in this encounter Additional Health Concerns Infection Onset Date Last Indicated Resolved Time COVID-19 Rule Out 01/17/2023 12/28/2022 01/17/2023 12:11 PM CDT COVID-19 Rule Out 03/27/2023 03/27/2023 03/27/2023 6:02 PM DEPUTY JUVENILE OFFICER Respiratory Rule Out 06/23/2024 06/23/2024 025 9:53 PM DEPUTY JUVENILE OFFICER COVID-19 Rule Out 06/23/2024 06/23/2024 06/23/2024 10:15 PM DEPUTY JUVENILE OFFICER Assessment Noted Time PHQ-9 Depression Total Score: 6 09/30/19 23 10:18 AM CDT documented as of this encounter Care Teams Trim Line Worker Relationship Specialty Start Date End Date Ciara Layton PA [address] [place] [address] PCP - General PHYSICIAN CHIEF PROCUREMENT OFFICER 04/15/18 Jb Kim MD Three [facility]. [address] [place], [place] [address] Consulting Physician CARDIOVASCULAR DISEASE 10/21/22 Phoenix Dye MD [address] [place] [address] Consulting Physician PULMONARY DISEASE 10/21/22 Jarad Garcia MD [address] [place] [address] Physician NEUROMUSCULOSKELETAL MEDICINE 10/21/22 08/25/23 Emelyn Warren MD [address] [place] [address] Consulting Physician NEUROLOGY 08/26/23 documented as of this encounter
--- OUTSIDE RECORDS SUMMARY | 2024-12-07 15:29 | XMS_ITS | Encounter Summary ---
Author Organization [facility] Address [facility] [place] [address] Care Team Providers Care Robotics Technologist Name Role Phone Ciara Layton Primary Care Provider [phone] Jb Kmi MD Unavailable [phone] Phoenix Dye MD Unavailable [phone] Jarad Garcia MD Unavailable [phone] Emelyn Warren MD Unavailable [phone] Encounter Details Date Type Department Care Team (Late st Contact Info) Description 05/22/2021 Prep for Procedure [facility] [address] [place], [place] [id number] [place] [address] [place] [address] Social History Tobacco Use Types Packs/Day Years [...] COVID-19? No / Unsure 05/25/2021 8:14 AM MACHINE DESIGNER documented as of this encounter Plan of Treatment Upcoming Encounters Date Type Department Care Team (Late st Contact Info) Description 12/10/2024 12:00 PM CDT Appointment [facility] [address] [place], [place] [phone] Nicola Parsons MD [facility]. [address] [place] [address] 02/22/2025 10:00 AM CDT Office Visit [facility] THREE [facility], [address] [place] [address] Judith Haile, SPECIALTY MOLDER-C [facility]. [address] [place] [address] 04/04/2025 9:40 AM MACHINE DESIGNER Office Visit [facility] Medical Group Multispecialty Care - [facility] 3 [facility] [place] [address] Phoenix Dye MD [address] [place] [address] [address] [place], [place] [address] documented as of this encounter Results * Pre- Surgical Coronavirus (COVID-19) Antigen Rapid (05/29/2021 8:20 AM MACHINE DESIGNER) CORONAVIRUS ANTIGEN IA NEGATIVE NEGATIVE 05/29/2021 8:50 AM MACHINE DESIGNER [facility] Comment: NEGATIVE RESULTS DO NOT [...] LABORATORIES. SPECIMEN TYPE NASAL 05/29/2021 8:23 AM MACHINE DESIGNER [facility] FIRST TEST UNKNOWN 05/29/2021 8:23 AM MACHINE DESIGNER [facility] EMPLOYED IN HEALTHCARE NO 05/29/2021 8:23 AM MACHINE DESIGNER [facility] SYMPTOMATIC DEFINED BY CDC NO 05/29/2021 8:23 AM MACHINE DESIGNER [facility] HOSPITALIZATION STATUS NO 05/29/2021 8:23 AM MACHINE DESIGNER [facility] PATIENT IN ICU NO 05/29/2021 8:23 AM MACHINE DESIGNER [facility] RESIDENT OF [facility] NO 05/29/2021 8:23 AM MACHINE DESIGNER [facility] Specimen from nose (specimen) NASAL STRUCTURE / Unknown 05/29/2021 8:20 AM MACHINE DESIGNER us Oniel Villalba DO MICROBIOLOGY - GENERAL ORDERABL ES Final Result Performing Organization Address City/State/[facility] Co de Phone Number [facility] [address] [place] [address], [place] [phone] documented in this encounter Visit Diagnoses Diagnosis Preop testing- Primary Preoperative examination, unspecified documented in this encounter Additional Health Concerns Infection Onset Date Last Indicated Resolved Time COVID-19 Rule Out 05/29/2021 05/29/2021 05/29/2021 8:50 AM MACHINE DESIGNER COVID-19 Rule Out 01/17/2023 12/28/2022 01/17/2023 12:11 PM CDT COVID-19 Rule Out 03/27/2023 03/27/2023 03/27/2023 6:02 PM MACHINE DESIGNER Respiratory Rule Out 06/23/2024 06/23/2024 025 9:53 PM MACHINE DESIGNER COVID-19 Rule Out 06/23/2024 06/23/2024 06/23/2024 10:15 PM MACHINE DESIGNER Assessment Noted Time PHQ-9 Depression Total Score: 0 01/27/20 2:17 PM CDT documented as of this encounter Care Teams Robotics Technologist Relationship Specialty Start Date End Date Ciara Layton PA [address] [place] [address] PCP - General PHYSICIAN PAINTER AND BODY WORK 04/15/18 Jb Kim MD Three [facility]. [address] [address] Consulting Physician CARDIOVASCULAR DISEASE 10/21/22 Phoenix Dye MD [address] [address] Consulting Physician PULMONARY DISEASE 10/21/22 Jarad Garcia MD 3 [place] [address] Physician NEUROMUSCULOSKELETAL MEDICINE 10/21/22 08/25/23 Emelyn Warren MD [address] [place] [address] Consulting Physician NEUROLOGY 08/26/23 documented as of this encounter
--- OUTSIDE RECORDS SUMMARY | 2024-12-07 15:29 | XMS_ITS | Encounter Summary ---
Author Organization [facility] Address [facility] [place] [address] Care Team Providers Care Perch Mender Name Role Phone Ciara Layton Primary Care Provider [phone] Jb Kim MD Unavailable [phone] Phoenix Dye MD Unavailable [phone] Emelyn Warren MD Unavailable [phone] Encounter Details Date Type Department Care Team (Late st Contact Info) Description 12/22/2023 Prep for Procedure [facility] [place] [address] [id number] Erika Caceres, HIGH LIFT DRIVER [id number] [place] [address] [phone] (Work) Social History Tobacco Use Types Packs/Day [...] Assessment Author Status No 03/07/2022 7:00 AM SAFETY BELT INSTALLER Activ e * RETIRED Are you blind or do you have serious difficulty seeing, even when wearing glasses? Answer Date of Assessment Author Status No 03/07/2022 8:00 AM SAFETY BELT INSTALLER Activ e * Do you have serious [...] Info) Description 12/10/2024 12:00 PM CDT Appointment [facility] [address] [place] [address] Nicola Parsons MD [facility]. [address] [place], [place] [id number] 02/22/2025 10:00 AM CDT [facility] [address] [place], [place] [address] Judith Haile, TIME CLERK-C [facility]. [address] [place] [address] 04/04/2025 9:40 AM SAFETY BELT INSTALLER Office Visit [facility] Multispecialty Care - [facility] [address] [facility] [place] [address] Phoenix Dye MD 3rd [facility] [address] [place] [address] documented as of this encounter Visit Diagnoses Not on filedocumented in this encounter Additional Health Concerns Infection Onset Date Last Indicated Resolved Time Respiratory Rule Out 06/23/2024 06/23/2024 025 9:53 PM SAFETY BELT INSTALLER COVID-19 Rule Out 06/23/2024 06/23/2024 06/23/2024 10:15 PM SAFETY BELT INSTALLER Assessment Noted Time PHQ-9 Depression Total Score: 6 09/30/19 23 10:18 AM CDT documented as of this encounter Care Teams Perch Mender Relationship Specialty Start Date End Date Ciara Layton PA [address] [place] [address] PCP - General PHYSICIAN OSTEOLOGIST 04/15/18 Jb Kim MD Three [facility]. [address] [place] [address] Consulting Physician CARDIOVASCULAR DISEASE 10/21/22 Phoenix Dye MD 3rd [facility] [address] [place], [place] [address] Consulting Physician PULMONARY DISEASE 10/21/22 Emelyn Warren MD [address] [place] [address] Consulting Physician NEUROLOGY 08/26/23 documented as of this encounter
--- OUTSIDE RECORDS SUMMARY | 2024-12-07 15:29 | XMS_ITS | Clinical Summary ---
Author Organization [facility] Address [address] [facility] [place] [address] Care Team Providers Care Automobile Taillight Assembler Name Role Phone Ciara Layton Primary Care Provider [phone] Source Comments [facility],non-owned Affiliates and Associated Physician Practices is amultiple site organization consisting of ambulatory clinics and hospital sitesin [place], [place], [place] and [place]. This disclosure is being madepursuant to the Care Everywhere program and may not contain all information available regarding this patient. Last updated 18.[facility] Allergies No known active allergies Medications * [...] Active vitamin D, ergocalciferol, (Drisdol) 1.25 MG (24001 UT) capsuleIndicati ons:Vitamin D Deficiency Take 1 [...] BLOOD SPECIMEN / Unknown 01/10/2024 Sharri Parsons RIVET MACHINE OPERATOR-EVENT SET UP SPECIALIST LAB - CHEMISTRY ORDERABLES F inal Result OTHER LAB * LIPID PROFILE (01/10/2024) Blood BLOOD SPECIMEN / Unknown 01/10/2024 Sharri Parsons RIVET MACHINE OPERATOR-EVENT SET UP SPECIALIST LAB - CHEMISTRY ORDERABLES F inal Result OTHER LAB from Last 3 Months or Most Recently Relevant to Health Maintenance Insurance [facility] Care Teams Automobile Taillight Assembler Relationship Specialty Start Date End Date Ciara Layton PA [address] [address] PCP - General Physician Sex Crimes Detective 10/11/23
--- OUTSIDE RECORDS SUMMARY | 2024-12-07 15:29 | XMS_ITS | Clinical Summary ---
Author Organization [facility] Address [facility] [place] [address] Care Team Providers Care Pictures Editor Name Role Phone Ciara Layton Primary Care Provider [phone] Jb Kim MD Unavailable [phone] Phoenix Dye MD Unavailable [phone] Emelyn Warren MD Unavailable [phone] Allergies No known active allergies Medications acetaminophen (TYLENOL) 500 MG tablet Take 2 tablets (1,000 mg total) by mouth every 6 (six) hours as needed. Active gabapentin (NEURONTIN) 300 MG capsuleIndication s:Polyneuropathy take 1 capsule by mouth three times a day 270 capsule 3 4 Active atorvastatin (LIPITOR) 10 MG tablet Take 1 tablet (10 mg total) by mouth. Active traMADol (ULTRAM) 50 MG tabletIndications :Acute Pain < 3 Day Supply Take 1 tablet (50 mg total) by mouth every 6 (six) hours as needed for Pain. Indications: Acute Pain < 3 Day Supply 10 tablet 4 Active furosemide (LASIX) 20 MG tablet Take 1 tablet (20 mg total) by mouth daily. Active meclizine (ANTIVERT) 25 MG tablet Take 1 tablet (25 mg total) by mouth 3 (three) times daily as needed. 4 Active lisinopril (PRINIVIL) 20 MG tabletIndications :Essential hypertension take 1 tablet by mouth every day 90 tablet 3 4 Active vitamin D2, ergocalciferol, (DRISDOL) 1.25 mg capsuleIndication s:Vitamin D deficiency Take 1 capsule (1.25 mg total) by mouth every 7 days. 12 capsule 3 5 Active nystatin (MYCOSTATIN) powderIndications :Intertrigo Apply topically 2 (two) times daily. 60 g 5 Active buPROPion XL (WELLBUTRIN XL) 150 MG 24 hr tabletIndications :Anxiety TAKE 1 TABLET BY MOUTH EVERY DAY 90 tablet 5 Active allopurinol (ZYLOPRIM) 100 MG tabletIndications :Chronic gout of hand, unspecified cause, unspecified laterality TAKE 1 TABLET BY MOUTH EVERY DAY 90 tablet 1 5 Active busPIRone (BUSPAR) 15 MG tabletIndications :Anxiety TAKE 1 TABLET BY MOUTH 2 TIMES DAILY. 180 tablet 1 5 Active naproxen (NAPROSYN) 500 MG tablet Take 1 tablet (500 mg total) by mouth 2 (two) times daily with meals. 10 tablet 5 Active HYDROcodone-aceta minophen (NORCO) 5-325 MG tabletIndications :Acute Pain < 7 Day Supply Take 1 tablet by mouth every 6 (six) hours as needed. Indications: Acute Pain < 7 Day Supply 12 tablet 5 Active Active Problems Problem Noted Date Diagnosed Date [...] (09/13/2022): Added automatically from request for surgery [id number] Varicose veins of leg with pain, bilateral 09/08 Benign paroxysmal positional vertigo 09/06/2022 Neck pain 08/03/2022 Bilateral occipital neuralgia 08/03/2022 Lumbar radiculopathy 07/05/2022 Osteoarthritis of left hip 07/01/2022 Degenerative disc disease, lumbar 07/01/2022 Post-traumatic osteoarthritis of left ankle 12/2022 Assessment & Plan (07/01/2022 11:59 AM CONCRETE PANEL INSTALLER): The recommendation at this time is to [...] diet. Assessment & Plan (05/15/2021 10:30 AM CONCRETE PANEL INSTALLER): Hopefully will be able to get him done over at [facility] for removal of the three screws. However, his BMI is over fifty and they may refuse. Assessment & Plan (03/25/2021 7:54 AM CONCRETE PANEL INSTALLER): We discussed the adverse effects of weight on osteoarthritis of the knee. For every 1 pound loss, 4 to 6 pounds of stress is relieved from the knee. We discussed low carbohydrate diet to help with weight loss. 80% of weight loss is through diet. Bilateral primary osteoarthritis of hip 03/25/20 Assessment & Plan (04/09/2021 6:02 PM CONCRETE PANEL INSTALLER): If no significant improvement in his left knee pain with the steroid injection consider a steroid injection with x-ray guided in radiology to the left hip. If no improvement in pain or discomfort then, consider MRI of the lumbar spine Assessment & Plan (03/25/2021 7:56 AM CONCRETE PANEL INSTALLER): Mild osteoarthritis noted bilateral hips. Minimal joint [...] weeks Assessment & Plan (04/09/2021 6:01 PM CONCRETE PANEL INSTALLER): No evidence of meniscal tear noted on [...] spine Assessment & Plan (03/25/2021 7:56 AM CONCRETE PANEL INSTALLER): Patient has undergone 2 surgeries to the left tibia from a fracture on 07/03/2019. Degenerative changes are noted but certainly not [id number]. We will recommend MRI for further evaluation especially to the menisci. Painful orthopaedic hardware 03/25/2021 Overview (06/08/2021): 06/01/2021 removal 3 screws left ankle Assessment & Plan (06/08/2021 10:05 AM CONCRETE PANEL INSTALLER): Bruning removed. Gradually increase activities as tolerated. Follow-up as needed Assessment & Plan (05/15/2021 10:30 AM CONCRETE PANEL INSTALLER): We discussed the risks, benefits and alternatives. [...] obtained. Assessment & Plan (04/09/2021 6:32 PM CONCRETE PANEL INSTALLER): The 3 screws on the distal aspect of the tibial nail at the ankle are long. Patient might benefit from removal of those 3 screws. Assessment & Plan (03/25/2021 7:57 AM CONCRETE PANEL INSTALLER): 3 distal screws are proud causing bony [...] modification Assessment & Plan (03/25/2021 7:58 AM CONCRETE PANEL INSTALLER): Since I do not necessarily do backs, [...] (10/18/2022): Added automatically from request for surgery [id number] Encounters Date Type Department Care Team Description 12/04/2024 9:10 AM CDT - 12/04/2024 11:50 AM CDT Emergency [facility] Emergency Room [address] [place] [address] Daisy Beck MD Foot Injury Discharge Disposition: Home or Self Care (Routine Discharge) 12/04/[address] [address] Ciara Layton PA Question 12/04/2024 Travel 10/08/2024 9:00 AM CDT Office Visit [address] [address] Ciara Layton PA Referral Request (Podiatry ) 10/08/2024 Travel 09/18/[address] [address] Ciara Layton PA Other (Imaging disk) 09/10/2024 Scan [facility] SRVCS Scanned, [facility] from Last 3 Months Immunizations Immunization Administration [...] Sign Reading Time Taken Comments Blood Pressure 135/83 12/04/2024 11:42 AM CDT Pulse 79 12/04/2024 11:42 AM CDT Temperature 36.2 C (97.1 F) 12/04/2024 11:42 AM CDT Respiratory Rate 17 12/04/2024 11:42 AM CDT Oxygen Saturation 96% 12/04/2024 11:42 AM CDT Inhaled Oxygen Concentration - - Weight 172.4 kg (380 lb) 12/04/2024 9:10 AM CDT Height 182.9 cm (6') 12/04/2024 9:10 AM CDT Body Mass Index 51.54 12/04/2024 9:10 AM CDT Plan of Treatment Upcoming Encounters Date Type Department Care Team (Late st Contact Info) Description 12/10/2024 12:00 PM CDT Appointment [facility] Ultrasound [address] [place], [place] [phone] Nicola Parsons MD [facility]. [facility] [address] [place], [place] [address] 02/22/2025 10:00 AM CDT [facility] [address] [place], [place] [address] Judith Haile FIRST AID DIRECTOR-C [facility]. [facility] [address] [place] [address] 04/04/2025 9:40 AM CONCRETE PANEL INSTALLER [facility] - [facility] [address] [facility] [place] [address] Phoenix Dye MD [facility] [address] [place] [address] Health Maintenance Due Date Last Done Comments [...] (10 Years) 11/22/2032 11/22/2022, 11/22/2022 PHQ-2 (Physician [place]) Completed 10/08/2024 Meningococcal B Vaccine Aged Out No l onger eligible based on patient's age to complete this topic Meningococcal Vaccine Aged Out No lennie toma eligible based on patient's age to complete this topic RSV Immunizations Under 20 Months Aged Out No longer eligible b ased on patient's age to complete this topic Medical Devices Implanted Type Area Material Expediter Device Identifier Shelf Expiration Date Model / Serial / Lot Hector Hector Left: Leg Description:Hector and screws Procedures Procedure Name Priority Date/Time Associated Diagnosis Comments XR FOOT RT 3V STAT 12/04/2024 9:32 AM CDT COLONOSCOPY Routine 11/22/2022 10:10 AM CDT from Last 3 Months or Most Recently Relevant to Health Maintenance Results * XR FOOT RT 3V (12/04/2024 9:32 AM CDT) Anatomical Region Laterality Modality Foot Radiographic Mena ging 12/04/2024 10:4 0 AM CDT Impressions 12/04/2024 10:46 AM CDT IMPRESSION: Acute fracture of the first metatarsal as described. Ordered By: DAISY BECK Interpreted By: Hubert Sainz, 12/04/2024 10:40 AM Narrative 12/04/2024 10:46 AM CDT [address] [place] [address] IMAGING STUDIES: XR FOOT RT 3V DATE: 12/04/2024 9:24 AM CLINICAL HISTORY: pain in foot after kicking table leg . Pain in great toe. COMPARISON: August 14, 2015 FINDINGS: Three view Right foot demonstrates incomplete acute vertical fracture through the medial and proximal aspect of the first metatarsal. Best seen on the oblique view.. New since prior exam. Difficult to determine if this extends into the articular surface At this location possibility of Lisfranc ligament injury is a consideration.. Mild scattered degenerative change. Mild soft tissue swelling over the dorsum of the foot. Moderately large plantar calcaneal spur and Achilles tendon insertion spur. Stable old nonunited chip fractures off the base of the fifth metatarsal. Procedure Note Arnold Sainz MD - 12/04/2024 [facility] [address] [place] [address] IMAGING STUDIES: XR FOOT RT 3V DATE: 12/04/2024 9:24 AM CLINICAL HISTORY: pain in foot after kicking table leg . Pain in greattoe. COMPARISON: August 14, 2015 FINDINGS: Three view Right foot demonstrates incomplete acute vertical fracturethrough the medial and proximal aspect of the first metatarsal. Best seenon the oblique view.. New since prior exam. Difficult to determine if thisextends into the articular surface At this location possibility of Lisfranc ligament injury is aconsideration.. Mild scattered degenerative change. Mild soft tissue swelling over thedorsum of the foot. Moderately large plantar calcaneal spur and Achilles tendon insertionspur. Stable old nonunited chip fractures off the base of the fifthmetatarsal. IMPRESSION: Acute fracture of the first metatarsal as described. Ordered By: DAISY BECK Interpreted By: Hubert Sainz, 12/04/2024 10:40 AM Daisy Beck MD GENERAL IMAGING Final Result from Last 3 Months Insurance [employer] Advance Directives * Full Code (Latest Code Status on File) Date Activated Date Inactivated Comments 03/07/2022 11:41 AM 03/11/2022 8:07 PM Care Teams Pictures Editor Relationship Specialty Start Date End Date Ciara Layton PA [address] [place] [address] PCP - General PHYSICIAN DINKEY BRAKEMAN 04/15/18 Jb Kim MD Three [facility]. [address] [place] [address] Consulting Physician CARDIOVASCULAR DISEASE 10/21/22 Phoenix Dye MD 3rd [facility] [address] [place] [address] Consulting Physician PULMONARY DISEASE 10/21/22 Emelyn Warren MD [address] [place] [address] Consulting Physician NEUROLOGY 08/26/23
--- OUTSIDE RECORDS SUMMARY | 2024-12-07 15:29 | XMS_ITS | Encounter Summary ---
Author Organization [facility] Address [facility] [place] [address] Care Team Providers Care Branch Billing Payroll Clerk Name Role Phone GillFredy MD Primary Care Provider Unavailable Ciara Layton Primary Care Provider [phone] Jb Kim MD Unavailable [phone] Phoenix Dye MD Unavailable [phone] Jarad Garcia MD Unavailable [phone] Emelyn Warren MD Unavailable [phone] Encounter Details Date Type Department Care Team (Late st Contact Info) Description 06/10/2015 Abstract [facility] Willis Jo MD [id number] [place] [address] Social History Tobacco Use Types Packs/Day Years Used Date Smoking Tobacco: Never Assessed Sex and Gender Information Value Date Recorded Sex Assigned at Male 12/10/2020 9:56 AM CDT Legal Sex Male 5:50 PM CDT Gender Identity Male 12/10/2020 9:56 AM CDT Sexual Orientation Straight 12/10/2020 9: 56 AM CDT documented as of this encounter Miscellaneous Notes * Letter - Willis Jo MD - 06/10/2015 12:00 AM CST Jun 13, 2015 Please excuse, Willis Izquierdo, from work/school on 06-11-2015 to 06-13-2015, due to illness and/or injury. Willis is released to return to work/school with no restrictions on 06-13-2015. Thank you, Willis Jo MD NING MACHINE FEEDER * Letter - Willis Jo MD - 06/10/2015 12:00 AM CST Jun 10, 2015 Please excuse, Willis Bobby Timbo, from work on 06-11-2015 to 06-13-2015, due to illness and/or injury. Willis is released to return to work/school with no restrictions on 06-14-2015. Thank you, Willis Jo MD NING MACHINE FEEDER documented in this encounter Plan of Treatment Upcoming Encounters Date Type Department Care Team (Late st Contact Info) Description 12/10/2024 12:00 PM CDT Appointment [facility] Ultrasound [address] [place], [place] [phone] Nicola Parsons MD [facility]. [address] [place], [place] [address] 02/22/2025 10:00 AM CDT Office Visit [facility] [facility], [address] [place], [place] [address] Judith Haile, WILDLIFE REFUGE SPECIALIST-C [facility]. [address] [place] [address] 04/04/2025 9:40 AM SKINNING MACHINE FEEDER Office Visit [facility] Multispecialty Care - [facility] [address] [facility] [place] [address] Phoenix Dye MD 3rd [facility] [address] [place] [address] documented as of this encounter Visit Diagnoses Not on filedocumented in this encounter Additional Health Concerns Infection Onset Date Last Indicated Resolved Time COVID-19 Rule Out 10/13/2020 10/13/2020 10/13/2020 10:37 AM CDT COVID-19 Rule Out 10/13/2020 10/13/2020 10/13/2020 8:32 PM CDT COVID-19 Rule Out 04/24/2021 04/24/2021 04/24/2021 4:18 PM SKINNING MACHINE FEEDER COVID-19 Confirmed 04/24/2021 04/24/2021 12:32 AM SKINNING MACHINE FEEDER COVID-19 Rule Out 05/29/2021 05/29/2021 05/29/2021 8:50 AM SKINNING MACHINE FEEDER COVID-19 Rule Out 01/17/2023 12/28/2022 01/17/2023 12:11 PM CDT COVID-19 Rule Out 03/27/2023 03/27/2023 03/27/2023 6:02 PM SKINNING MACHINE FEEDER Respiratory Rule Out 06/23/2024 06/23/2024 025 9:53 PM SKINNING MACHINE FEEDER COVID-19 Rule Out 06/23/2024 06/23/2024 06/23/2024 10:15 PM SKINNING MACHINE FEEDER documented as of this encounter Care Teams Branch Billing Payroll Clerk Relationship Specialty Start Date End Date Fredy Gill MD PCP - General 10/05/16 04/14/18 Ciara Layton PA [address] [place] [address] PCP - General PHYSICIAN RIVET HAMMER MACHINE OPERATOR 04/15/18 Jb Kim MD Three [facility]. [facility] [address] [place] [address] Consulting Physician CARDIOVASCULAR DISEASE 10/21/22 Phoenix Dye MD [address] [place] [address] Consulting Physician PULMONARY DISEASE 10/21/22 Jarad Garcia MD [address] [place] [address] Physician NEUROMUSCULOSKELETAL MEDICINE 10/21/22 08/25/23 Emelyn Warren MD [address] [place] [address] Consulting Physician NEUROLOGY 08/26/23 documented as of this encounter
--- OUTSIDE RECORDS SUMMARY | 2024-12-07 15:29 | XMS_ITS | Encounter Summary ---
Author Organization [facility] Address [facility] [place] [address] Care Team Providers Care Primary Special Education Teacher Name Role Phone Ciara Layton Primary Care Provider [phone] Jb Kim MD Unavailable [phone] Phoenix Dye MD Unavailable [phone] Jarad Garcia MD Unavailable [phone] Emelyn Warren MD Unavailable [phone] Encounter Details Date Type Department Care Team (Late st Contact Info) Description 08/12/2022 [employer] Message Enc [facility], [address] [address] [place]icit[place], [facility] Provider Stress test Reviewed Social History Tobacco [...] Assessment Author Status No 03/07/2022 7:00 AM STRATEGIC CONSULTANT Activ e * RETIRED Are you blind or do you have serious difficulty seeing, even when wearing glasses? Answer Date of Assessment Author Status No 03/07/2022 8:00 AM STRATEGIC CONSULTANT Activ e * Do you have serious [...] Info) Description 12/10/2024 12:00 PM CDT Appointment [facility] [address] [facility] [place] [address] Nicola Parsons MD [facility]. [facility] [address] [place], [place] [address] 02/22/2025 10:00 AM CDT [facility] [address] [place], [place] [phone] Judith Haile, GROUND SYSTEMS ENGINEER-C [facility]. [address] [place], [place] [address] 04/04/2025 9:40 AM STRATEGIC CONSULTANT Office Visit [facility] Medical Group Multispecialty Care - [facility] [address] [facility] [place] [address] Phoenix Dye MD [address] [place] [address] [address] [place] [address] documented as of this encounter Visit Diagnoses Not on filedocumented in this encounter Additional Health Concerns Infection Onset Date Last Indicated Resolved Time COVID-19 Rule Out 01/17/2023 12/28/2022 01/17/2023 12:11 PM CDT COVID-19 Rule Out 03/27/2023 03/27/2023 03/27/2023 6:02 PM STRATEGIC CONSULTANT Respiratory Rule Out 06/23/2024 06/23/2024 025 9:53 PM STRATEGIC CONSULTANT COVID-19 Rule Out 06/23/2024 06/23/2024 06/23/2024 10:15 PM STRATEGIC CONSULTANT Assessment Noted Time PHQ-9 Depression Total Score: 0 05/03/19 23 2:19 PM STRATEGIC CONSULTANT documented as of this encounter Care Teams Primary Special Education Teacher Relationship Specialty Start Date End Date Ciara Layton PA [address] [place] [address] PCP - General PHYSICIAN WARP SPLITTER 04/15/18 Jb Kim MD [facility]. [address] [place] [address] Consulting Physician CARDIOVASCULAR DISEASE 10/21/22 Phoenix Dye MD [address] [address] Consulting Physician PULMONARY DISEASE 10/21/22 Jarad Garcia MD [address] [place], [place] [address] Physician NEUROMUSCULOSKELETAL MEDICINE 10/21/22 08/25/23 Emelyn Warren MD [address] [place] [address] Consulting Physician NEUROLOGY 08/26/23 documented as of this encounter
--- OUTSIDE RECORDS SUMMARY | 2024-12-07 15:29 | XMS_ITS | Encounter Summary ---
Author Organization [facility] Address [facility] [place] [address] Care Team Providers Care Rewinder Name Role Phone GillFredy MD Primary Care Provider Unavailable Ciara Layton Primary Care Provider [phone] Jb Kim MD Unavailable [phone] Phoenix Dye MD Unavailable [phone] Jarad Garcia MD Unavailable [phone] Emelyn Warren MD Unavailable [phone] Encounter Details Date Type Department Care Team (Late st Contact Info) Description 07/03/2014 Abstract [facility] Conversion Ciara Layton, KARINA [address] [place] [address] Social History Tobacco Use Types Packs/Day Years [...] Elliott - 07/03/2014 12:00 AM CDT [address] [place] [address] Jul 03, 2014 Please excuse, Willis Izquierdo, from work/school on 07-01-2014 to 07-05-2014, due to illness and/or injury. Willis is released to return to work/school with no restrictions on 07-08-2014. Thank you, Ciara COLLINS AT PHOTOCOMPOSING MACHINE OPERATOR documented in this encounter Plan of Treatment Upcoming Encounters Date Type Department Care Team (Late st Contact Info) Description 12/10/2024 12:00 PM CDT Appointment [facility] Ultrasound [address] [place], [place] [id number] Nicola Parsons MD Three [facility]. [address] [place], [place] [address] 02/22/2025 10:00 AM CDT Office Visit [facility] THREE [facility], [address] [place], [place] [id number] Judith Haile, FACING MACHINE OPERATOR-C [facility]. [address] [place], [place] [address] 04/04/2025 9:40 AM REPEAT PHOTOCOMPOSING MACHINE OPERATOR Office Visit [facility] Mult[facility]pecialty Care - [facility] [address] [facility] [address] [place] [address] Phoenix Dye MD 3rd [facility] [address] [place], [place] [address] documented as of this encounter Visit Diagnoses Not on filedocumented in this encounter Additional Health Concerns Infection Onset Date Last Indicated Resolved Time COVID-19 Rule Out 10/13/2020 10/13/2020 10/13/2020 10:37 AM CDT COVID-19 Rule Out 10/13/2020 10/13/2020 10/13/2020 8:32 PM CDT COVID-19 Rule Out 04/24/2021 04/24/2021 04/24/2021 4:18 PM REPEAT PHOTOCOMPOSING MACHINE OPERATOR COVID-19 Confirmed 04/24/2021 04/24/2021 12:32 AM REPEAT PHOTOCOMPOSING MACHINE OPERATOR COVID-19 Rule Out 05/29/2021 05/29/2021 05/29/2021 8:50 AM REPEAT PHOTOCOMPOSING MACHINE OPERATOR COVID-19 Rule Out 01/17/2023 12/28/2022 01/17/2023 12:11 PM CDT COVID-19 Rule Out 03/27/2023 03/27/2023 03/27/2023 6:02 PM REPEAT PHOTOCOMPOSING MACHINE OPERATOR Respiratory Rule Out 06/23/2024 06/23/2024 025 9:53 PM REPEAT PHOTOCOMPOSING MACHINE OPERATOR COVID-19 Rule Out 06/23/2024 06/23/2024 06/23/2024 10:15 PM REPEAT PHOTOCOMPOSING MACHINE OPERATOR documented as of this encounter Care Teams Rewinder Relationship Specialty Start Date End Date Fredy Gill MD PCP - General 10/05/16 04/14/18 Ciara Layton PA [address] [place] [address] PCP - General PHYSICIAN PROP SAWYER 04/15/18 Jb Kim MD Three [facility]. [address] [address] Consulting Physician CARDIOVASCULAR DISEASE 10/21/22 Phoenix Dye MD [address] [address] Consulting Physician PULMONARY DISEASE 10/21/22 Jarad Garcia MD 3 [place] [address] Physician NEUROMUSCULOSKELETAL MEDICINE 10/21/22 08/25/23 Emelyn Warren MD [address] [place] [address] Consulting Physician NEUROLOGY 08/26/23 documented as of this encounter
--- OUTSIDE RECORDS SUMMARY | 2024-12-07 15:29 | XMS_ITS | Encounter Summary ---
Author Organization [facility] Address [facility] [place] [address] Care Team Providers Care Senior Embedded Software Engineer Name Role Phone Ciara Layton Primary Care Provider [phone] Jb Kim MD Unavailable [phone] Phoenix Dye MD Unavailable [phone] Jarad Garcia MD Unavailable [phone] Emelyn Warren MD Unavailable [phone] Reason for Referral * Surgical (Routine) - Closed Specialty Diagnoses / Procedures Referred By Contac t Referred To Contact Diagnoses Varicose veins of lower extremity with pain, right Procedures Case request operating room: GREATER SAPHGNEOUS VEIN LASER ABLATION ( RIGHT LOWER EXTREMITY) AND STAB PHLEBECTOMY (RIGHT LOWER EXTREMITY) Nicola Parsons MD [address] [address] Phone: tel: fax: Referral ID Status Reason Start Date Expiration Date Visits Re quested Visits Authorized [id number] Closed 09/10/2022 09/11/2023 1 1 Encounter Details Date Type Department Care Team (Late st Contact Info) Description 09/10/2022 Prep for Procedure [facility] THREE [facility], [address] [place], [place] [id number] Nicola Parsons MD Three [facility]. [facility] [address] [place], [place] [phone] Social History Tobacco Use Types Packs/Day Years [...] Assessment Author Status No 03/07/2022 7:00 AM COPPER FLOTATION OPERATOR Activ e * RETIRED Are you blind or do you have serious difficulty seeing, even when wearing glasses? Answer Date of Assessment Author Status No 03/07/2022 8:00 AM COPPER FLOTATION OPERATOR Activ e * Do you have [...] Date Author Status No 03/07/2022 8:00 AM COPPER FLOTATION OPERATOR Amanda De La Fuente RN Active documented in this encounter Plan of Treatment Upcoming Encounters Date Type Department Care Team (Late st Contact Info) Description 12/10/2024 12:00 PM CDT Appointment [facility] Ultrasound [address] [place], [place] [phone] Nicola Parsons MD Three [facility]. [address] [place], [place] [address] 02/22/2025 10:00 AM CDT Office Visit [facility], [address] [place] [address] Judith Haile, SALVAGE DIVER-C [facility]. [address] [place] [address] 04/04/2025 9:40 AM COPPER FLOTATION OPERATOR Office Visit [facility]ialty [facility] - [facility] 3 [facility] [address] [place] [address] Phoenix Dye MD [address] [place] [address] [address] [place], [place] [address] Scheduled Orders Name Type Priority Associated Diagnoses [...] Rule Out 03/27/2023 03/27/2023 03/27/2023 6:02 PM COPPER FLOTATION OPERATOR Respiratory Rule Out 06/23/2024 06/23/2024 025 9:53 PM COPPER FLOTATION OPERATOR COVID-19 Rule Out 06/23/2024 06/23/2024 06/23/2024 10:15 PM COPPER FLOTATION OPERATOR Assessment Noted Time PHQ-9 Depression Total Score: 0 05/03/19 2:19 PM COPPER FLOTATION OPERATOR documented as of this encounter Care Teams Senior Embedded Software Engineer Relationship Specialty Start Date End Date Ciara Layton PA [address] [place] [address] PCP - General PHYSICIAN HELIX COIL WINDER 04/15/18 Jb Kim MD Three [facility]. [address] [address] Consulting Physician CARDIOVASCULAR DISEASE 10/21/22 Phoenix Dye MD [address] [address] Consulting Physician PULMONARY DISEASE 10/21/22 Jarad Garcia MD 3 [place], [place] [address] Physician NEUROMUSCULOSKELETAL MEDICINE 10/21/22 08/25/23 Emelyn Warren MD [address] [place], [place] [address] Consulting Physician NEUROLOGY 08/26/23 documented as of this encounter
--- OUTSIDE RECORDS SUMMARY | 2024-12-07 15:29 | XMS_ITS | Encounter Summary ---
Author Organization [facility] Address [facility] [place] [address] Care Team Providers Care Recruiting Associate Name Role Phone Fredy Gill MD Primary Care Provider Unavailable Ciara Layton Primary Care Provider [phone] bJ Kim MD Unavailable [phone] Phoenix Dye MD Unavailable [phone] Jarad Garcia MD Unavailable [phone] Emelyn Warren MD Unavailable [phone] Encounter Details Date Type Department Care Team (Late st Contact Info) Description 08/15/2014 Abstract [facility] Conversion , Generic Conversion, Social [...] Info) Description 12/10/2024 12:00 PM CDT Appointment [facility] [address] [place] [address] Nicola Parsons MD Three [facility]. [address] [place] [address] 02/22/2025 10:00 AM CDT Office Visit [facility] THREE [facility], [address] [place] [address] Judith Haile, DENTAL LABORATORY TECHNOLOGY TEACHER-C Three [facility]. [address] [place] [address] 04/04/2025 9:40 AM CROWNING HAMMER OPERATOR Office Visit [facility] Multispecialty Care - [facility] 3 [facility] [address] [place] [address] Phoenix Dye MD [address] [place] [address] [address] [place] [address] documented as of this encounter Visit Diagnoses Not on filedocumented in this encounter Additional Health Concerns Infection Onset Date Last Indicated Resolved Time COVID-19 Rule Out 10/13/2020 10/13/2020 10/13/2020 10:37 AM CDT COVID-19 Rule Out 10/13/2020 10/13/2020 10/13/2020 8:32 PM CDT COVID-19 Rule Out 04/24/2021 04/24/2021 04/24/2021 4:18 PM CROWNING HAMMER OPERATOR COVID-19 Confirmed 04/24/2021 04/24/2021 12:32 AM CROWNING HAMMER OPERATOR COVID-19 Rule Out 05/29/2021 05/29/2021 05/29/2021 8:50 AM CROWNING HAMMER OPERATOR COVID-19 Rule Out 01/17/2023 12/28/2022 01/17/2023 12:11 PM CDT COVID-19 Rule Out 03/27/2023 03/27/2023 03/27/2023 6:02 PM CROWNING HAMMER OPERATOR Respiratory Rule Out 06/23/2024 06/23/2024 025 9:53 PM CROWNING HAMMER OPERATOR COVID-19 Rule Out 06/23/2024 06/23/2024 06/23/2024 10:15 PM CROWNING HAMMER OPERATOR documented as of this encounter Care Teams Recruiting Associate Relationship Specialty Start Date End Date GillFredy MD PCP - General 10/05/16 04/14/18 Ciara Layton, PA [address] [place] [address] PCP - General PHYSICIAN AUDIOVISUAL LEAD TECHNICIAN 04/15/18 Jb Kim MD Three [facility]. [address] [address] Consulting Physician CARDIOVASCULAR DISEASE 10/21/22 Phoenix Dye MD [address] [place] [address] Consulting Physician PULMONARY DISEASE 10/21/22 Jarad Garcia MD 3 [place] [address] Physician NEUROMUSCULOSKELETAL MEDICINE 10/21/22 08/25/23 Emelyn Warren MD [address] [place] [address] Consulting Physician NEUROLOGY 08/26/23 documented as of this encounter
--- OUTSIDE RECORDS SUMMARY | 2024-12-07 15:29 | XMS_ITS | Encounter Summary ---
Author Organization [facility] Address [facility]6 [place] [address] Care Team Providers Care Marionette Performer Name Role Phone Fredy Gill MD Primary Care Provider Unavailable Ciara Layton Primary Care Provider [phone] Jb Kim MD Unavailable [phone] Phoenix Dye MD Unavailable [phone] Jarad Garcia MD Unavailable [phone] Emelyn Warren MD Unavailable [phone] Encounter Details Date Type Department Care Team (Late st Contact Info) Description 08/06/2014 Abstract [facility] Conversion , Generic Conversion, Social History [...] Info) Description 12/10/2024 12:00 PM CDT Appointment [facility] [address] [place] [address] Nicola Parsons MD Three [facility]. [address] [place] [address] 02/22/2025 10:00 AM CDT Office Visit [facility] THREE [facility], [address] [place] [address] Judith Haile, REFRESH TECHNICIAN-C Three [facility]. [address] [place] [address] 04/04/2025 9:40 AM RESTAURANT MAINTENANCE TECHNICIAN Office Visit [facility] Multispecialty Care - [facility] 3 [facility] [address] [place] [address] Phoenix Dye MD [address] [place] [address] [address] [place] [address] documented as of this encounter Visit Diagnoses Not on filedocumented in this encounter Additional Health Concerns Infection Onset Date Last Indicated Resolved Time COVID-19 Rule Out 10/13/2020 10/13/2020 10/13/2020 10:37 AM CDT COVID-19 Rule Out 10/13/2020 10/13/2020 10/13/2020 8:32 PM CDT COVID-19 Rule Out 04/24/2021 04/24/2021 04/24/2021 4:18 PM RESTAURANT MAINTENANCE TECHNICIAN COVID-19 Confirmed 04/24/2021 04/24/2021 12:32 AM RESTAURANT MAINTENANCE TECHNICIAN COVID-19 Rule Out 05/29/2021 05/29/2021 05/29/2021 8:50 AM RESTAURANT MAINTENANCE TECHNICIAN COVID-19 Rule Out 01/17/2023 12/28/2022 01/17/2023 12:11 PM CDT COVID-19 Rule Out 03/27/2023 03/27/2023 03/27/2023 6:02 PM RESTAURANT MAINTENANCE TECHNICIAN Respiratory Rule Out 06/23/2024 06/23/2024 025 9:53 PM RESTAURANT MAINTENANCE TECHNICIAN COVID-19 Rule Out 06/23/2024 06/23/2024 06/23/2024 10:15 PM RESTAURANT MAINTENANCE TECHNICIAN documented as of this encounter Care Teams Marionette Performer Relationship Specialty Start Date End Date GillFredy MD PCP - General 10/05/16 04/14/18 Ciara Layton, PA [address] [place] [address] PCP - General PHYSICIAN SECONDARY EDUCATION PROFESSOR 04/15/18 Jb Kim MD Three [facility]. [address] [address] Consulting Physician CARDIOVASCULAR DISEASE 10/21/22 Phoenix Dye MD [address] [place] [address] Consulting Physician PULMONARY DISEASE 10/21/22 Jarad Garcia MD 3 [place] [address] Physician NEUROMUSCULOSKELETAL MEDICINE 10/21/22 08/25/23 Emelyn Warren MD [address] [place] [address] Consulting Physician NEUROLOGY 08/26/23 documented as of this encounter
--- OUTSIDE RECORDS SUMMARY | 2024-12-07 15:29 | XMS_ITS | Encounter Summary ---
Author Organization [facility] Address [facility] [place] [address] Care Team Providers Care Longshore Equipment Operator Name Role Phone Ciara Layton Primary Care Provider [phone] Jb Kim MD Unavailable [phone] Phoenix Dye MD Unavailable [phone] Jarad Garcia MD Unavailable [phone] Emelyn Warren MD Unavailable [phone] Encounter Details Date Type Department Care Team (Late st Contact Info) Description 10/28/2022 Pre-Procedure Call [facility] [place] [address] [id number] Minnie Mays CNA Social History Tobacco Use [...] Assessment Author Status No 03/07/2022 7:00 AM LOTTERY MANAGER Activ e * RETIRED Are you blind or do you have serious difficulty seeing, even when wearing glasses? Answer Date of Assessment Author Status No 03/07/2022 8:00 AM LOTTERY MANAGER Activ e * Do you have serious [...] AM DANICAT Ciara Clark RN Active * [place] Suicide Severity Rating Scale (Screener/Recent Self-Report) Question [...] Date Author Status No 03/07/2022 8:00 AM LOTTERY MANAGER Amanda De La Fuente RN Active documented in this encounter Plan of Treatment Upcoming Encounters Date Type Department Care Team (Late st Contact Info) Description 12/10/2024 12:00 PM CDT Appointment [facility] Ul[facility]ound [address] [place], [place] [phone] Nicola Parsons MD Three [facility]. [address] [place], [place] [address] 02/22/2025 10:00 AM CDT Office Visit [facility] THREE [facility], [address] [place] [address] Judith Haile, EGG CRATER-C Three [facility]. [address] [place] [address] 04/04/2025 9:40 AM LOTTERY MANAGER Office Visit [facility] [address] [place] [phone] Phoenix Dye MD 3rd [facility] [address] [place] [address] documented as of this encounter Visit Diagnoses Not on filedocumented in this encounter Additional Health Concerns Infection Onset Date Last Indicated Resolved Time COVID-19 Rule Out 01/17/2023 12/28/2022 01/17/2023 12:11 PM CDT COVID-19 Rule Out 03/27/2023 03/27/2023 03/27/2023 6:02 PM LOTTERY MANAGER Respiratory Rule Out 06/23/2024 06/23/2024 025 9:53 PM LOTTERY MANAGER COVID-19 Rule Out 06/23/2024 06/23/2024 06/23/2024 10:15 PM LOTTERY MANAGER Assessment Noted Time PHQ-9 Depression Total Score: 6 09/30/19 23 10:18 AM CDT documented as of this encounter Care Teams Longshore Equipment Operator Relationship Specialty Start Date End Date Ciara Layton PA [address] [place] [address] PCP - General PHYSICIAN BUSINESS ADVISOR 04/15/18 Jb Kim MD Three [facility]. [address] [address] Consulting Physician CARDIOVASCULAR DISEASE 10/21/22 Phoenix Dye MD [address] [address] Consulting Physician PULMONARY DISEASE 10/21/22 Jarad Garcia MD 3 [place], [place] [address] Physician NEUROMUSCULOSKELETAL MEDICINE 10/21/22 08/25/23 Emelyn Warren MD [address] [place] [address] Consulting Physician NEUROLOGY 08/26/23 documented as of this encounter
--- OUTSIDE RECORDS SUMMARY | 2024-12-07 15:29 | XMS_ITS | Encounter Summary ---
Author Organization [facility] Address [facility] [place] [address] Care Team Providers Care Palliative Care Nurse Name Role Phone Ciara Layton Primary Care Provider [phone] Jb Kim MD Unavailable [phone] Phoenix Dye MD Unavailable [phone] Emelyn Warren MD Unavailable [phone] Encounter Details Date Type Department Care Team (Late st Contact Info) Description 05/29/2024 MyChart Message Enc [facility] Medical Group Multispecialty Care - [facility] 3 [facility], [address] [place] [phone] Esteban Ctoa MD 3 [place] [address] Chiropractic question Social History Tobacco Use Types [...] Assessment Author Status No 03/07/2022 7:00 AM INDUSTRIAL ENGINEERING ANALYST Activ e * RETIRED Are you blind or do you have serious difficulty seeing, even when wearing glasses? Answer Date of Assessment Author Status No 03/07/2022 8:00 AM INDUSTRIAL ENGINEERING ANALYST Activ e * Do you have serious [...] 12:00 PM CDT Appointment [facility] Ultrasound [address] [place] [address] Nicola Parsons MD [facility]. [facility] [address] [place] [address] 02/22/2025 10:00 AM CDT [facility] [address] [place] [address] Judith Haile, COMPUTER SYSTEMS DESIGN ANALYST-C [facility]. [address] [place] [address] 04/04/2025 9:40 AM INDUSTRIAL ENGINEERING ANALYST Office Visit [facility] Medical Group Multispecialty Care - [facility] 3 [facility] [place] [address] Phoenix Dye MD [address] [place] [address] [address] [place] [address] documented as of this encounter Visit Diagnoses Not on filedocumented in this encounter Additional Health Concerns Infection Onset Date Last Indicated Resolved Time Respiratory Rule Out 06/23/2024 06/23/2024 025 9:53 PM INDUSTRIAL ENGINEERING ANALYST COVID-19 Rule Out 06/23/2024 06/23/2024 06/23/2024 10:15 PM INDUSTRIAL ENGINEERING ANALYST Assessment Noted Time PHQ-9 Depression Total Score: 6 09/30/19 23 10:18 AM CDT documented as of this encounter Care Teams Palliative Care Nurse Relationship Specialty Start Date End Date Ciara Layton PA [address] [place] [address] PCP - General PHYSICIAN CYBER ANALYST 04/15/18 Jb Kim MD Three [facility]. [address] [place] [address] Consulting Physician CARDIOVASCULAR DISEASE 10/21/22 Phoenix Dye MD [address] [place] [address] [address] [place] [address] Consulting Physician PULMONARY DISEASE 10/21/22 Emelyn Warren MD [address] [place] [address] Consulting Physician NEUROLOGY 08/26/23 documented as of this encounter
--- OUTSIDE RECORDS SUMMARY | 2024-12-07 15:29 | XMS_ITS | Encounter Summary ---
Author Organization [facility] Address [facility]6 [place] [address] Care Team Providers Care Endodontics Dentist Name Role Phone Fredy Gill MD Primary Care Provider Unavailable Ciara Layton Primary Care Provider [phone] Jb Kim MD Unavailable [phone] Phoenix Dye MD Unavailable [phone] Jarad Garcia MD Unavailable [phone] Emelyn Warren MD Unavailable [phone] Encounter Details Date Type Department Care Team (Late st Contact Info) Description 02/09/2002 Abstract [facility] Conversion , Generic Conversion, Social [...] Info) Description 12/10/2024 12:00 PM CDT Appointment [facility] [address] [place] [address] Nicola Parsons MD Three [facility]. [address] [place] [address] 02/22/2025 10:00 AM CDT Office Visit [facility] THREE [facility], [address] [place] [address] Judith Haile, TRANSFORMATION CONSULTANT-C Three [facility]. [address] [place] [address] 04/04/2025 9:40 AM MEDICAL SALES ASSOCIATE Office Visit [facility] Medical Group Mult[facility]pecialty Care - [facility] 3 [facility] [place] [address] Phoenix Dye MD [address] [place] [address] [address] [place] [address] documented as of this encounter Visit Diagnoses Not on filedocumented in this encounter Additional Health Concerns Infection Onset Date Last Indicated Resolved Time COVID-19 Rule Out 10/13/2020 10/13/2020 10/13/2020 10:37 AM CDT COVID-19 Rule Out 10/13/2020 10/13/2020 10/13/2020 8:32 PM CDT COVID-19 Rule Out 04/24/2021 04/24/2021 04/24/2021 4:18 PM MEDICAL SALES ASSOCIATE COVID-19 Confirmed 04/24/2021 04/24/2021 12:32 AM MEDICAL SALES ASSOCIATE COVID-19 Rule Out 05/29/2021 05/29/2021 05/29/2021 8:50 AM MEDICAL SALES ASSOCIATE COVID-19 Rule Out 01/17/2023 12/28/2022 01/17/2023 12:11 PM CDT COVID-19 Rule Out 03/27/2023 03/27/2023 03/27/2023 6:02 PM MEDICAL SALES ASSOCIATE Respiratory Rule Out 06/23/2024 06/23/2024 025 9:53 PM MEDICAL SALES ASSOCIATE COVID-19 Rule Out 06/23/2024 06/23/2024 06/23/2024 10:15 PM MEDICAL SALES ASSOCIATE documented as of this encounter Care Teams Endodontics Dentist Relationship Specialty Start Date End Date GillFredy MD PCP - General 10/05/16 04/14/18 Ciara Layton, PA [address] [place] [address] PCP - General PHYSICIAN SUPERVISOR INSTRUMENT MAINTENANCE 04/15/18 Jb Kim MD Three [facility]. [address] [address] Consulting Physician CARDIOVASCULAR DISEASE 10/21/22 Phoenix Dye MD [address] [place] [address] Consulting Physician PULMONARY DISEASE 10/21/22 Jarad Garcia MD 3 [place] [address] Physician NEUROMUSCULOSKELETAL MEDICINE 10/21/22 08/25/23 Emelyn Warren MD [address] [place] [address] Consulting Physician NEUROLOGY 08/26/23 documented as of this encounter
--- NOTE | 2024-12-07 15:30 | ECG_ITS ---
Test Date: 2024-12-07 15:41:45 Measurements Intervals [place] Rate: 78 P: 30 AK: 160 QRS: 8 QRSD: 101 T: 21 QT: 378 QTc: 431 Interpretive Statements SINUS RHYTHM POOR R WAVE PROGRESSION BASELINE ARTIFACT- I, II, III, AVR, AVL, AVF BORDERLINE ECG No previous ECG available for comparison Electronically Signed On 12-07-2024 16:23:43 CDT by Colby Romo D.O.
== END 2024-12-07 15:24 | disposition home or self-care (01) ==
LOC: ANHSURGERY 15:26
PROVIDERS: Visit Provider Otolaryngology Otolaryngology/Facial Plastic Surgery
DX: Z01.818 Encounter for other preprocedural examination (principal); I10 Essential (primary) hypertension; R94.31 Abnormal electrocardiogram [ECG] [EKG]
CPT/HCPCS: 93005

== ENCOUNTER 2024-12-14 01:41 | Day surgery (SDC) | payer OTHER, SELFPAY ==
[2024-12-06 10:02] VITALS: BMI 51.6
--- NOTE | 2024-12-06 10:03 | PC.NURSE ---
Report to the Outpatient Waiting Room, entrance under the green pavilion located off [facility], at time _0730_ on date _[id number]_. Planned Procedure Time: _0930_.? Time changes happen often and if your time is changed the preop area will call you the afternoon before. - You and your visitor will be asked to self-screen and do not enter if you have any COVID symptoms. Please call surgeon if you need to reschedule. - A mask is optional within the hospital at this time. Patients may have clear liquids (water, carbonated beverages, clear teas, apple juice) until 3 hours prior to surgery with a maximum of 20 ounces. - No food from midnight until time of surgery and no smoking, or chewing tobacco (or any form of nicotine). No chewing gum, candy or mints. Take only the following medications with a SIP of water on the morning of surgery: __Buspirone, Bupropion, Gabapentin, Flonase and if needed Hydrocodone. DO NOT STOP ANY OF YOUR OTHER PRESCRIPTION MEDICATIONS PRIOR TO SURGERY EXCEPT THE FOLLOWING Hold all vitamins and supplements for 3 days per anesthesiologist. Medications to discontinue per physician Date to take last twtl__[id number] Please no make-up, nail montenegrin, hairspray, perfume, deodorant, or body powder the day of surgery.? No jewelry (including any body piercings) or valuables the day of surgery, leave them at home.? Please take a shower or bath the night before, or the morning of, surgery with an antibacterial soap.? Wear comfortable, loose fitting clothing.? - Jewelry must be removed prior to entering the operating room.? Rings and piercings that are not removed may be cut off. - The hospital will not accept responsibility for valuables.? - Please leave all valuables, including medications, at home the day of surgery. If you are going home after surgery, a licensed tractor trailer truck driver must drive you home.? - NO public transportation without another adult if you receive anesthesia. - We recommend that an adult stay with you for 24 hours following discharge. - We also recommend that you do not drive, make important decision, drink alcoholic beverages, or take any drugs that were not prescribed by your health care provider for at least 24 hours after your discharge time. Follow any additional instructions given to you from your surgeon. Telephone instructions given to __Michael__and asked if any additional questions and then verbalized understanding. Patient advised to call surgeon office or pre surgery nurse liaison [phone] if any additional questions.
[2024-12-14] VITALS (9 sets, daily range): BP systolic 116–145; BP diastolic 80–103; PULSE 74–103; RESP 14–22; TEMP 36.7; O2SAT 92–99
--- NOTE | 2024-12-14 07:23 | PM.IMHP ---
H&P: HPI History of Present Illness Date/Time: 12/14/24 07:23 Chief Complaint: left chronic sinusitis Review of Systems Review of Systems: All systems reviewed & are unremarkable except as noted in HPI and below Constitutional: Constitutional: Reports as per HPI ENT: Reports as per HPI PENDING SALE TO [facility] Past Medical History Medical History (Updated 12/14/24 @ 07:24 by Michael Ornelas MD) Deviated nasal septum, congenital Chronic maxillary sinusitis Positional vertigo Social History Social History Smoking status: Never smoker Alcohol intake: current Substance use: never Living arrangements: with roommate(s) Spiritual care concerns: No Meds Home Medications and Allergies Home Medications ?Medication ?Instructions ?Recorded ?Confirmed ?Type allopurinol 100 mg tablet 100 mg PO DAILY 09/10/24 12/06/24 History bupropion HCl 150 mg 24 hr tablet, 150 mg PO DAILY 09/10/24 12/06/24 History extended release buspirone 15 mg tablet 15 mg PO BID 09/10/24 12/06/24 History ergocalciferol (vitamin D2) 1,250 1,250 mcg PO WEEKLY 09/10/24 12/06/24 History mcg (50,000 unit) capsule gabapentin 300 mg capsule 300 mg PO TID 09/10/24 12/06/24 History lisinopril 20 mg tablet 20 mg PO DAILY 09/10/24 12/06/24 History fluticasone propionate 50 1 spray intranasal DAILY 30 days 12/03/24 12/06/24 Rx mcg/actuation nasal #16 grams spray,suspension hydrocodone 5 mg-acetaminophen 325 1 tablet PO Q6H PRN pain 12/06/24 12/06/24 History mg tablet oregano oil 1,500 mg capsule 8,000 mg PO DAILY 12/06/24 12/06/24 History Allergies Allergy/AdvReac Type Severity Reaction Status Date / Time No Known Allergies Allergy Unverified 12/06/24 09:47 Exam Const: General: cooperative, healthy appearing, comfortable, no acute distress, well developed, alert, awake and Physically active Orientation/consciousness: oriented to person, oriented to place, oriented to time and patient oriented x3 HENMT: Head: normocephalic and atraumatic Ears: external ears normal and EAC's normal Face/Nose/Sinus: Normal external nose present and Normal nares present Mouth: Yes Normal oral and palatal mucosa present, Yes lip normal and Yes tongue normal Other: deviated nasal septum Eyes: General: appearance normal, both eyes and all related structures Neck: Neck: normal visual inspection, full ROM and trachea midline Resp: Effort & Inspection: normal respiratory effort and able to speak in complete sentences Cardio: Rate: regular rate Neuro: General: oriented to person, oriented to place, oriented to time and patient oriented x3 Assessment and Plan Assessment and plan (1) Chronic maxillary sinusitis: Code(s): J32.0 - Chronic maxillary sinusitis Status: Acute (2) Deviated nasal septum, congenital: Code(s): Q67.4 - Other congenital deformities of skull, face and jaw Status: Acute Plan 49-year-old male with left-sided severely deviated nasal septum chronic sinusitis, hypertrophy of nasal turbinates, left nasal blockage ,asymmtetrical SNHL positional vertigo. I have personally reviewed the imaging study the patient performed and i agree with the report I have also reviewed the imaging study with the patient i have reviewed the hearing test with the patient Audiogram 09/21/2024 :result was discussed with the patient Tympanometry : Type A ,Type A AD Audiometry: AD: wnl save for mild dip at 2khz :mild snhl sloping snhl at 4khz WRS :excellent AU 1-MRI IAC,CP angle was ordered to rule out any CP angle or IAC pathology causing the asymmetry in hearing as well as the vertigo 2-patient which need sinus surgery for the left side: Septoplasty Submucous resection of inferior turbinate, partial or complete, any method ,bilateral Fracture nasal inferior turbinate,bilateral maxillary antrostomy,left anterior ethmoidectomy,left nasal/sinus endoscopy, surgical, with dilation of the frontal sinus ostium using a balloon, left -Risk of septoplasty procedures were discussed with the patient which include but not limited to; Bleeding, infection, septal perforation, saddle nose deformity, intranasal scarring -Risks for sinus surgery: injury to the skull base, injury to the eye, need for further surgery. Risk of recurrent disease is also discussed. All the questions were answered to the best of my ability and the patient wished to proceed. The procedures will be scheduled in a timely fashion.
--- NOTE | 2024-12-14 07:25 | P.OP_ITS ---
Procedure Note - Detailed Date of Procedure 12/14/24 Pre-op Diagnosis Deviated nasal septum, maxi ethmoidal, frontal sinusitis,hypertrophy of inferior turbinates Post-op Diagnosis Same Procedure Performed Septoplasty Submucous resection of inferior turbinate, partial or complete, any method ,bilateral Fracture nasal inferior turbinate,bilateral maxillary antrostomy,left anterior ethmoidectomy,left nasal/sinus endoscopy, surgical, with dilation of the frontal sinus ostium using a balloon, left Surgeon Michael Ornelas MD Anesthesia General Findings mucopurulent secretions were culture swabbed from the left middle turbinate and left maxillary sinus Description of Procedure The patient was seen in the preoperative area, informed consent was checked and confirmed. The patient was taken to the operating room, sedated and placed under general anesthesia with an endotracheal tube . Eyes were taped and were prepped and draped in the usual sterile fashion. The nose was examined, and the left anterior septum was injected with 1% lidocaine with 1:100,000 epinephrine. Temple incision was made and a mucoperichondrial flap was elevated to expose the quadrangular cartilage and bony septum. Incision was then made anteriorly on the quadrangular cartilage to elevate the contralateral mucoperichondrial flap. The deviated quadrangular cartilage was excised with a Glen knife. At least 1 cm of dorsal and caudal strut of quadrangular was left in place. We resected the deviated bony septum with a Davenport-Larson and a pituitary forceps. After adequate resection of the posterior-inferior bony septum, the mucoperichondrial Flap was laid back in anatomic position. We proceeded to the endoscopic sinus procedure starting on the left side The agger nasi area was injected with 1% lidocaine with 1:100,000 epinephrine. The body of the middle turbinate was injected with 1% lidocaine with 1:100,000 epinephrine. The middle turbinate was gently medialized and the uncinectomy was performed with a pediatric Gonzalez backbiter and the uncinectomy was completed with a shaver from the inferior-posterior attachment to the superior anterior attachment. The ethmoidectomy was performed by shaving the anterior ethmoid bulla and care was taken to protect the skull base in the lamina papyracea. Maxillary antrum was re-examined with a 30-degree scope. A ball probe was passed into the antrum and was further widened with a backbiter in the anterior- inferior aspect. Agger Nasi cells on left were opened with the shaver and 30-degree scope. Frontal sinus ostium was identified with lighted guidewire. Then the balloon was passed into the frontal sinus and the ostia was adequately dilated. Shaver was used to debride excess tissue to clear the frontal recess. We proceeded with submucosal inferior turbinate reduction, starting on the right side, a stab incision was made anterior mucosa of inferior turbinate. Submucosal pocket was created along the length of the inferior turbinate and the micr odebrider blade 2mm thick was introduced anteriorly and into the whole submucosal pocket. Microdebrider was then used to remove the hypertrophied bony parts of anterior turbinate head and soft tissue with the outer layer intact. The residual inferior turbinate was then out fractured using Boies elevator. We proceeded to the left side. A stab incision was made on the anterior mucosa of inferior turbinate. Submucosal pocket was created along the length of the inferior turbinate and the microdebrider blade 2 mm thick was introduced anteriorly and into the whole submucosal pocket. Microdebrider was then used to remove the hypertrophied bony parts of anterior turbinate head and soft tissue with the outer layer intact. The residual inferior turbinate was then out fractured using Boies elevator. Pledgets were removed from left ethmoid cavity , PosiSep X BAM Hemostat Dressing sponges were placed in ethmoid cavities bilaterally and infiltrated with a mixture of kenalog and cefazolin. The nose was then suctioned clean and at this point the care of the patient was then transferred to the anesthesiologist where the patient emerged from general anesthesia without complication. Estimated Blood Loss 50 (ml) Packing Yes (absorbable packing ) Complications No immediate complications Condition Stable Disposition PACU [facility] Billing Surgery - Charge Forward: Surgery Billing
--- NOTE | 2024-12-14 07:25 | WPDHPUPDATE1 ---
History and Physical Update Update Date/Time: 12/14/24 07:25 History and Physical has been reviewed, including an updated exam of the patient. There are NO changes in the patient's condition. Risks, benefits, and alternatives have been discussed and questions answered. Patient agrees to proceed with procedure. procedure will be Septoplasty Submucous resection of inferior turbinate, partial or complete, any method ,bilateral Fracture nasal inferior turbinate,bilateral maxillary antrostomy,left anterior ethmoidectomy,left nasal/sinus endoscopy, surgical, with dilation of the frontal sinus ostium using a balloon, left
[2024-12-14] MEDS: OXYMETAZOLINE HCL 0.05% NAS 15 ML BTL (*BKC) 2 SPRAY NASAL ×3 (08:35→08:45)
[2024-12-14] MEDS: LACTATED RINGERS 1,000 ML 30 ML IV CONT ×2 (08:40→12:51)
[2024-12-14] MEDS: ACETAMINOPHEN 500 MG TABLET 1000 MG PO (08:40)
--- NOTE | 2024-12-14 09:39 | WPDANESEPPF ---
Anes - Initial Pre Proc Eval Procedure: Operation Date: 12/14/24 09:30 Proposed Procedures p Image Guided Submucous Resection of Inferior Turbinate, Complete, Bilateral, Fracture Nasal Inferior Turbinate Bilateral,Left Maxillary Antrostomy, Left Anterior Ethmoidectomy, Dilation of the Left Frontal Sinus Ostium using a Balloon, - Michael Ornelas MD s Septoplasty - Michael Ornelas MD Date/Time: 12/14/24 09:39 Surgeon: Michael Ornelas MD Pre Op Diagnosis: hearing loss, maxi ethmoidal, frontal sinusitus Patient Data Age: 49 Gender: M Height: 1.83 m Weight: 172.7 kg Allergies Allergy/AdvReac Type Severity Reaction Status Date / Time No Known Allergies Allergy Unverified 12/06/24 09:47 Home Medications ?Medication ?Instructions ?Recorded ?Confirmed ?Type allopurinol 100 mg tablet 100 mg PO DAILY 09/10/24 12/06/24 History bupropion HCl 150 mg 24 hr tablet, 150 mg PO DAILY 09/10/24 12/06/24 History extended release buspirone 15 mg tablet 15 mg PO BID 09/10/24 12/06/24 History ergocalciferol (vitamin D2) 1,250 1,250 mcg PO WEEKLY 09/10/24 12/06/24 History mcg (50,000 unit) capsule gabapentin 300 mg capsule 300 mg PO TID 09/10/24 12/06/24 History lisinopril 20 mg tablet 20 mg PO DAILY 09/10/24 12/06/24 History fluticasone propionate 50 1 spray intranasal DAILY 30 days 12/03/24 12/06/24 Rx mcg/actuation nasal #16 grams spray,suspension hydrocodone 5 mg-acetaminophen 325 1 tablet PO Q6H PRN pain 12/06/24 12/06/24 History mg tablet oregano oil 1,500 mg capsule 8,000 mg PO DAILY 12/06/24 12/06/24 History Patient hx anesthesia problems: none Family hx anesthesia problems: none Results Review: All pre-operative results and documents have been reviewed as part of the pre-operative evaluation. [facility]LY [facility] Past Medical History Medical History Deviated nasal septum, congenital Chronic maxillary sinusitis Positional vertigo Social History Social History Smoking status: Never smoker Alcohol intake: current Substance use: never Living arrangements: with roommate(s) Spiritual care concerns: No Anes - Eval Final PreProcedure Day of Procedure 12/14/24 09:39 Patient weight: morbidly obese Lungs: normal air movement Airway: Mallampati scale class II Neurological: alert and oriented Last oral intake: >/= 8 hours ASA classification: III Emergent: no Anesthetic plan: proceed Anesthesia type and monitoring: general ETT and standard monitoring Results Review: All pre-operative results and documents have been reviewed as part of the pre-operative evaluation. BMI 51, BERNIE on CPAP, no known CAD, pt can walk short distances, no cp or sob. Pt has had recent foot/ankle fracture, has been less mobile but has been moving somewhat and not completely bedbound. Informed Consent: The patient's anesthetic plan and its attendant risks and benefits were discussed with the patient/family/POA. Questions were solicited and answers provided to the satisfaction of the patient/family/POA.
[2024-12-14] MEDS: ceFAZolin 2 GM in SODIUM CHLORIDE 0.9% IV 50 ML 100 ML IVPB (10:00)
[2024-12-14] MEDS: COCAINE HCL (*CRX) 4% TOP SOLN 4 ML VIAL 1 APPLIC TOPICAL (10:22)
[2024-12-14] MEDS: LIDO 1%/EPINEPHRINE 1:100,000 50 ML VIAL INFILTRATE (10:23)
[2024-12-14] MEDS: TRIAMCINOLONE ACET INJ 40 MG/ML VIAL XX (10:28)
--- NOTE | 2024-12-14 11:40 | SUR.OPER ---
cultures x2 sent with KAYCEE Gallagher to lab at 11:40
[2024-12-14] MEDS: MUPIROCIN 2% OINT 22 GM TUBE 1 APPLIC TOPICAL (11:59)
[2024-12-14] MEDS: fentaNYL CITRATE INJ (*CRX) 100 MCG/2 ML VIAL 25 MCG IV PUSH ×2 (13:02→13:06)
[2024-12-14] MEDS: oxyCODONE HCL (*CRX) 5 MG TAB IR PO (14:20)
== END 2024-12-14 15:05 | disposition home or self-care (01) ==
PROVIDERS: Visit Provider Otolaryngology Otolaryngology/Facial Plastic Surgery
PROC: (CPT 30520; principal; 2024-12-14 09:30)
PROC: (CPT 30520; 2024-12-14 09:30)
DX: J32.0 Chronic maxillary sinusitis (principal); J34.3 Hypertrophy of nasal turbinates; J34.2 Deviated nasal septum; H81.10 Benign paroxysmal vertigo, unspecified ear; G89.18 Other acute postprocedural pain; G47.33 Obstructive sleep apnea (adult) (pediatric); E66.01 Morbid (severe) obesity due to excess calories; Z68.43 Body mass index [BMI] 50.0-59.9, adult; Z79.891 Long term (current) use of opiate analgesic; Z99.89 Dependence on other enabling machines and devices
CPT/HCPCS: 30520; 31256; 31254; 31296; 30140; 61782; 87070; 87075; 87205; J0690; A9270; C1726; J1100; J2003; J2004; J2250; J2270; J2405; J2704; J2919; J3010; J3301; J7040; J7120